=== PATIENT | female | born 1945 | race Caucasian/White ===

== ENCOUNTER → 2016-10-23 | Outpatient (CLI) | payer MEDICARE ==
--- NOTE | 2016-10-23 15:19 | CT ---
EXAMINATION TYPE: CT abdomen wo con DATE OF EXAM: 10/23/2016 3:09 PM COMPARISON: NONE HISTORY: Distented abdomen superior to navel area. Hx of hernia repairs. CT DLP: 341.[address] of the abdomen pelvis was performed. GI contrast was used. FINDINGS: LUNG BASES: No evidence for nodule. No evidence for infiltrate. There is a small fixed hiatal hernia. LIVER/GB: The gallbladder is unremarkable. 1.6 cm simple appearing cyst adjacent to the falciform lig ament of the liver. Additional ill-defined hypoattenuating area anterior segment right hepatic lobe m easuring 1.8 cm. Consider ultrasound correlation. PANCREAS: No pancreatic mass identified. No inflammatory process seen. SPLEEN: No evidence for splenomegaly. No intrasplenic lesions seen. ADRENALS: No adrenal nodules identified. No evidence for thickening. KIDNEYS: No evidence for renal mass. No nephrolithiasis. No hydronephrosis. BOWEL: No evidence of bowel obstruction. No inflammatory process. Lymph nodes: No evidence for adenopathy greater than 1 cm. Abdominal aorta: Atheromatous changes seen. No evidence for aneurysm. Other: Fat-containing ventral hernias of both extending towards the right of midline and towards the left of midline. Small fat-containing umbilical hernia also noted. Degenerative changes L4-5 and L5-S 1. Grade 1 anterolisthesis L4 on L5. IMPRESSION: 1.Fat-containing ventral hernias of both extending towards the right of midline and towards the left of midline. Small fat-containing umbilical hernia also noted. 2. Small sliding-type hiatal hernia. 3. 1.6 cm simple appearing cyst adjacent to the falciform ligament of the liver.Additional ill-define d hypoattenuating area anterior segment right hepatic lobe measuring 1.8 cm. Consider ultrasound kenzie elation.
--- NOTE | 2016-10-24 12:56 | MM ---
Reason for exam: screening (asymptomatic). Last mammogram was performed 1 year and 1 month ago. History: Patient is postmenopausal. Took estrogen for 6 years 7 months. Took progesterone for 6 years 7 months. Physical Findings: A clinical breast exam by your physician is recommended on an annual basis and results should be correlated with mammographic findings. MG 3D Screening Mammo W/Cad Bilateral CC and MLO view(s) were taken. Prior study comparison: October 04, 2015, bilateral MG 3d screening mammo w/cad. June 09, 2014, bilateral MG screening mammo w CAD. June 08, 2013, bilateral digital screening mammo w/CAD. There are scattered fibroglandular densities. There is no discrete abnormality. ASSESSMENT: Negative, BI-RAD 1 RECOMMENDATION: Routine screening mammogram of both breasts in 1 year.
== END | disposition home or self-care (01) ==
LOC: RADMAMWWP 13:59
PROVIDERS: ATTEND Family Medicine
DX: Z12.31 Encounter for screening mammogram for malignant neoplasm of breast (principal); K43.2 Incisional hernia without obstruction or gangrene; K43.9 Ventral hernia without obstruction or gangrene; K44.9 Diaphragmatic hernia without obstruction or gangrene; M24.20 Disorder of ligament, unspecified site; R93.2 Abnormal findings on diagnostic imaging of liver and biliary tract
CPT/HCPCS: 77063; 74150; G0202

== ENCOUNTER → 2018-01-16 | Outpatient (CLI) | payer MEDICARE ==
--- NOTE | 2018-01-23 11:33 | MM ---
Reason for exam: screening (asymptomatic). Last mammogram was performed 1 year and 3 months ago. History: Patient is postmenopausal. Took estrogen for 6 years 7 months. Took progesterone for 6 years 7 months. MG 3D Screening Mammo W/Cad Bilateral CC and MLO view(s) were taken. Prior study comparison: October 23, 2016, bilateral MG 3d screening mammo w/cad. October 04, 2015, bilateral MG 3d screening mammo w/cad. June 09, 2014, bilateral MG screening mammo w CAD. There are scattered fibroglandular densities. No suspicious abnormality. No significant changes when compared with prior studies. ASSESSMENT: Negative, BI-RAD 1 RECOMMENDATION: Routine screening mammogram of both breasts in 1 year.
== END | disposition home or self-care (01) ==
LOC: RADMAMWWP 09:27
PROVIDERS: ATTEND Family Medicine
DX: Z12.31 Encounter for screening mammogram for malignant neoplasm of breast (principal)
CPT/HCPCS: 77063; 77067

== ENCOUNTER → 2019-02-23 | Outpatient (CLI) | payer MEDICARE ==
--- NOTE | 2019-02-25 08:57 | MM ---
Reason for exam: screening (asymptomatic). Last mammogram was performed 1 year and 1 month ago. History: Patient is postmenopausal. Took estrogen for 6 years 7 months. Took progesterone for 6 years 7 months. Physical Findings: A clinical breast exam by your physician is recommended on an annual basis and results should be correlated with mammographic findings. MG Screening Mammo w CAD Bilateral CC and MLO view(s) were taken. Prior study comparison: January 16, 2018, bilateral MG 3d screening mammo w/cad. October 23, 2016, bilateral MG 3d screening mammo w/cad. There are scattered fibroglandular densities. No significant changes when compared with prior studies. ASSESSMENT: Negative, BI-RAD 1 RECOMMENDATION: Routine screening mammogram of both breasts in 1 year.
== END | disposition home or self-care (01) ==
LOC: RADMAMWWP 13:46
PROVIDERS: ATTEND Family Medicine
DX: Z12.31 Encounter for screening mammogram for malignant neoplasm of breast (principal)
CPT/HCPCS: 77067

== ENCOUNTER → 2020-10-17 | Outpatient (CLI) | payer MEDICARE ==
--- NOTE | 2020-10-18 10:16 | MM ---
Reason for exam: screening (asymptomatic). Last mammogram was performed 1 year and 8 months ago. History: Patient is postmenopausal. Took estrogen for 6 years 7 months. Took progesterone for 6 years 7 months. Physical Findings: A clinical breast exam by your physician is recommended on an annual basis and results should be correlated with mammographic findings. MG 3D Screening Mammo W/Cad Bilateral CC and MLO view(s) were taken. Prior study comparison: February 23, 2019, bilateral MG screening mammo w CAD. January 16, 2018, bilateral MG 3d screening mammo w/cad. There are scattered fibroglandular densities. No significant changes when compared with prior studies. ASSESSMENT: Benign, BI-RAD 2 RECOMMENDATION: Routine screening mammogram of both breasts in 1 year.
== END | disposition home or self-care (01) ==
LOC: RADMAMWWP 10:43
PROVIDERS: ATTEND Family Medicine
DX: Z12.31 Encounter for screening mammogram for malignant neoplasm of breast (principal); Z78.0 Asymptomatic menopausal state
CPT/HCPCS: 77063; 77067

== ENCOUNTER 2021-03-18 22:48 | Inpatient (IN) | payer MEDICARE ==
[2021-03-18] MEDS ORDERED: SODIUM CHLORIDE 0.9% 1,000 ML IV STA ×2 (23:14)
[2021-03-18] MEDS ORDERED: MORPHINE SULFATE 4 MG/ML SYRINGE IV STA (23:14)
[2021-03-18] MEDS ORDERED: ONDANSETRON 4 MG/2 ML VIAL IVP STA (23:14)
[2021-03-18] MEDS ORDERED: PROCHLORPERAZINE INJ 10 MG/2 ML VIAL IVP STA (23:14)
--- NOTE | 2021-03-18 23:14 | ED ---
Abdominal Pain HPI - General Chief Complaint: Chest Pain Stated Complaint: Chest Pain,Abd Pain Time Seen by Provider: 03/18/21 22:51 Source: patient, EMS, RN notes reviewed, old records reviewed Mode of arrival: EMS Limitations: no limitations - History of Present Illness Initial Comments: This is a 75-year-old female to the emergency room today. Patient presents today for evaluation regards to chest pain really mainly epigastric pain with severe abdominal pain going to her back nausea and vomiting. Also complains of chest pain with the abdominal pain. No current history of similar symptoms. No fevers. Actively vomiting so poor story currently. She does have history of high blood pressure no history of heart disease MD Complaint: abdominal pain, other (Chest pain back pain) -: hour(s) Location: periumbilical, epigastric, bilateral flank Radiation: bilateral flank Migration to: epigastric Severity: moderate Severity scale (1-10): 6 Quality: sharp Consistency: constant Improves With: nothing Worsens With: nothing Associated Symptoms: nausea, vomiting Treatments Prior to Arrival: other - Related Data Home Medications Medication Instructions Recorded Confirmed Aspirin 81 mg PO DAILY 02/03/14 10/21/14 Escitalopram [Lexapro] 10 mg PO Q48H 02/03/14 10/22/14 Fexofenadine HCl [Alyssa Allergy] 180 mg PO HS 02/03/14 10/22/14 Lansoprazole 30 mg PO DAILY 02/03/14 10/21/14 Meloxicam [Mobic] 7.5 mg PO BID 02/03/14 10/21/14 Metoprolol Succinate [Toprol XL] 200 mg PO BID 02/03/14 10/21/14 Telmisartan/Hydrochlorothiazid 1 tab PO DAILY 02/03/14 10/21/14 [Micardis Hct 80-12.5 mg Tablet] cloNIDine HCL [Catapres] 0.2 mg PO TID 02/03/14 10/21/14 Glucosam/Mayito-Msm1/C/Sebastian/Bosw 1 each PO DAILY 10/21/14 10/21/14 [Glucosamine-Chondroitin Tablet] [place]-3 Fatty Acids/Fish Oil [Fish 1 each PO DAILY 10/21/14 10/21/14 Oil 1,000 mg Softgel] amLODIPine BESYLATE [Norvasc] 5 mg PO DAILY 10/21/14 10/21/14 Previous Rx's Medication Instructions Recorded Docusate [Colace] 100 mg PO BID #30 capsule 10/22/14 Hydrocodone/Acetaminophen [[place] 1 each PO Q6HR PRN #50 tab 10/22/14 5-325] Allergies Allergy/AdvReac Type Severity Reaction Status Date / Time clarithromycin [From Biaxin] Allergy Severe Abdominal Verified 10/24/14 16:23 Pain celecoxib [From Celebrex] Allergy Unknown Rash/Hives Verified 10/24/14 16:23 ciprofloxacin [From Cipro] Allergy Unknown Rash/Hives Verified 10/24/14 16:23 ciprofloxacin HCl Allergy Unknown Rash/Hives Verified 10/24/14 16:23 [From Cipro] sulfamethoxazole Allergy Rash/Hives Verified 03/18/21 22:57 [From Bactrim] trimethoprim [From Bactrim] Allergy Rash/Hives Verified 03/18/21 22:57 Review of Systems ROS Statement: Those systems with pertinent positive or pertinent negative responses have been documented in the HPI. ROS Other: All systems not noted in ROS Statement are negative. Past Medical History Past Medical History: GERD/Reflux, Hypertension, Osteoarthritis (OA), Sleep Apnea/CPAP/BIPAP Additional Past Medical History / Comment(s): C-PAP MACHINE, STATES SHE HAS HEART FLUTTERS WHEN SHE TRIES TO DISCONTINUE LEXAPRO., ABD HERNIA., HEARING AIDS DARIANA. History of Any Multi-Drug Resistant Organisms: None Reported Past Surgical History: Appendectomy, Hernia Repair Additional Past Surgical History / Comment(s): Mucinous neoplasm of appendix, ventral hernia repair, excision of lipoma Past Anesthesia/Blood Transfusion Reactions: No Reported Reaction, Motion Sickness Past Psychological History: No Psychological Hx Reported Smoking Status: Never smoker Past Alcohol Use History: Occasional Past Drug Use History: None Reported - Past Family History Mother Family Medical History: No Reported History General Exam Limitations: no limitations General appearance: anxious Head exam: Present: atraumatic, normocephalic, normal inspection Eye exam: Present: normal appearance, PERRL, EOMI. Absent: scleral icterus, conjunctival injection, periorbital swelling ENT exam: Present: normal exam, mucous membranes moist Neck exam: Present: normal inspection. Absent: tenderness, meningismus, lymphadenopathy Respiratory exam: Present: normal lung sounds bilaterally. Absent: respiratory distress, wheezes, rales, rhonchi, stridor Cardiovascular Exam: Present: normal rhythm, bradycardia (Patient states this is her normal heart rate), normal heart sounds. Absent: systolic murmur, diastolic murmur, rubs, gallop, clicks GI/Abdominal exam: Present: soft, normal bowel sounds. Absent: distended, tenderness, guarding, rebound, rigid Extremities exam: Present: normal inspection, full ROM, normal capillary refill. Absent: tenderness, pedal edema, joint swelling, calf tenderness Back exam: Present: normal inspection Neurological exam: Present: alert, oriented X3, CN II-XII intact Psychiatric exam: Present: normal affect, normal mood Skin exam: Present: warm, dry, intact, normal color. Absent: rash Course Vital Signs 03/18/21 03/18/21 03/19/21 22:51 22:55 00:30 Temperature 97.7 F Pulse Rate 51 L 73 Pulse Rate [ 52 L Adolescent Psychiatrist ] Respiratory 20 18 Rate Blood Pressure 110/75 157/81 O2 Sat by Pulse 95 96 Oximetry 03/19/21 02:05 Temperature Pulse Rate 79 Pulse Rate [ Adolescent Psychiatrist ] Respiratory 18 Rate Blood Pressure 188/96 O2 Sat by Pulse 96 Oximetry - Reevaluation(s) Reevaluation #1: 03/19/21 00:29 Medical record is reviewed Reevaluation #2: 03/19/21 00:29 Patient does need recurrent dosing of nausea vomiting and pain medication Reevaluation #3: 03/19/21 02:27 Is persistent vomiting throughout ER stay although now mildly improved - Consultations Consultation #1: Spoke with Dr. Ramesh will see patient Medical Decision Making - Medical Decision Making 75 female to the ER today for evaluation of severe epigastric abdominal pain pain in her back. History of ventral hernia and appendicectomy surgeries. 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 and will be admitted for surgical consultation - Lab Data Result diagrams: 03/18/21 23:28 03/18/21 23:28 Lab Results 03/18/21 03/18/21 03/18/21 Range/Units 23:28 23:28 23:28 WBC 11.3 H (3.8-10.6) k/uL RBC 4.43 (3.80-5.40) m/uL Hgb 14.2 (11.4-16.0) gm/dL Hct 41.7 (34.0-46.0) % MCV 94.0 (80.0-100.0) fL MCH 32.0 (25.0-35.0) pg MCHC 34.1 (31.0-37.0) g/dL RDW 13.1 (11.5-15.5) % Plt Count 281 (150-450) k/uL MPV 7.7 Neutrophils % 78 % Lymphocytes % 14 % Monocytes % 4 % Eosinophils % 2 % Basophils % 1 % Neutrophils # 8.8 H (1.3-7.7) k/uL Lymphocytes # 1.6 (1.0-4.8) k/uL Monocytes # 0.5 (0-1.0) k/uL Eosinophils # 0.2 (0-0.7) k/uL Basophils # 0.1 (0-0.2) k/uL PT 10.6 (9.0-12.0) sec INR 1.0 (<1.2) APTT 19.7 L (22.0-30.0) sec D-Dimer 0.44 (<0.60) mg/L FEU Sodium 131 L (137-145) mmol/L Potassium 3.4 L (3.5-5.1) mmol/L Chloride 98 (98-107) mmol/L Carbon Dioxide 23 (22-30) mmol/L Anion Gap 10 mmol/L BUN 19 H (7-17) mg/dL Creatinine 0.90 (0.52-1.04) mg/dL Est GFR (CKD-EPI)AfAm 72 (>60 ml/min/1.73 sqM) Est GFR (CKD-EPI)NonAf 62 (>60 ml/min/1.73 sqM) Glucose 142 H (74-99) mg/dL Calcium 9.5 (8.4-10.2) mg/dL Magnesium 1.8 (1.6-2.3) mg/dL Total Bilirubin 0.4 (0.2-1.3) mg/dL AST 52 H (14-36) U/L ALT 40 H (4-34) U/L Alkaline Phosphatase 83 (38-126) U/L Troponin I (0.000-0.034) ng/mL NT-Pro-B Natriuret Pep pg/mL Total Protein 6.8 (6.3-8.2) g/dL Albumin 3.8 (3.5-5.0) g/dL Lipase 191 (23-300) U/L 03/18/21 03/18/21 Range/Units 23:28 23:28 WBC (3.8-10.6) k/uL RBC (3.80-5.40) m/uL Hgb (11.4-16.0) gm/dL Hct (34.0-46.0) % MCV (80.0-100.0) fL MCH (25.0-35.0) pg MCHC (31.0-37.0) g/dL RDW (11.5-15.5) % Plt Count (150-450) k/uL MPV Neutrophils % % Lymphocytes % % Monocytes % % Eosinophils % % Basophils % % Neutrophils # (1.3-7.7) k/uL Lymphocytes # (1.0-4.8) k/uL Monocytes # (0-1.0) k/uL Eosinophils # (0-0.7) k/uL Basophils # (0-0.2) k/uL PT (9.0-12.0) sec INR (<1.2) APTT (22.0-30.0) sec D-Dimer (<0.60) mg/L FEU Sodium (137-145) mmol/L Potassium (3.5-5.1) mmol/L Chloride (98-107) mmol/L Carbon Dioxide (22-30) mmol/L Anion Gap mmol/L BUN (7-17) mg/dL Creatinine (0.52-1.04) mg/dL Est GFR (CKD-EPI)AfAm (>60 ml/min/1.73 sqM) Est GFR (CKD-EPI)NonAf (>60 ml/min/1.73 sqM) Glucose (74-99) mg/dL Calcium (8.4-10.2) mg/dL Magnesium (1.6-2.3) mg/dL Total Bilirubin (0.2-1.3) mg/dL AST (14-36) U/L ALT (4-34) U/L Alkaline Phosphatase (38-126) U/L Troponin I <0.012 (0.000-0.034) ng/mL NT-Pro-B Natriuret Pep 341 pg/mL Total Protein (6.3-8.2) g/dL Albumin (3.5-5.0) g/dL Lipase (23-300) U/L - EKG Data -: EKG Interpreted by Me (EKG shows sinus bradycardia 58 VA 170 QRS 72 QTC 435) - Radiology Data Radiology results: report reviewed (CT abdomen and pelvis is positive for cecal volvulus), image reviewed Disposition Clinical Impression: Abdominal pain, Cecal volvulus Disposition: ADMITTED IP TO THIS [facility] Condition: Serious Is patient prescribed a controlled substance at d/c from ED?: No Referrals: Ray Gomes DO [Primary Care Provider] - 1-2 days
[2021-03-18 23:40] LABS: Basophils # (A) 0.1 k/uL (0-0.2); Basophils % (A) 1 %; Eosinophils # (A) 0.2 k/uL (0-0.7); Eosinophils % (A) 2 %; HCT 41.7 % (34.0-46.0); HGB 14.2 gm/dL (11.4-16.0); Lymphocytes # (A) 1.6 k/uL (1.0-4.8); Lymphocytes % (A) 14 %; MCHC 34.1 g/dL (31.0-37.0); Mean Platelet Volume 7.7; Monocytes # (A) 0.5 k/uL (0-1.0); Monocytes % (A) 4 %; Neutrophils # (A) 8.8 k/uL (1.3-7.7); Neutrophils % (A) 78 %; Platelet Count 281 k/uL (150-450); RBC 4.43 m/uL (3.80-5.40); RDW 13.1 % (11.5-15.5); WBC 11.3 k/uL (3.8-10.6)
[2021-03-18 23:50] LABS: Albumin 3.8 g/dL (3.5-5.0); Calcium 9.5 mg/dL (8.4-10.2); Magnesium 1.8 mg/dL (1.6-2.3); Potassium 3.4 mmol/L (3.5-5.1); Total Bilirubin 0.4 mg/dL (0.2-1.3); Total Protein 6.8 g/dL (6.3-8.2)
--- NOTE | 2021-03-19 00:21 | US ---
EXAMINATION TYPE: US gallbladder DATE OF EXAM: 03/19/2021 COMPARISON: CT, US CLINICAL HISTORY: pain. Pain. Hx appendectomy. EXAM MEASUREMENTS: Liver Length: 14.7 cm Right Kidney: 9.5 x 5.0 x 4.5 cm Limited due to overlying bowel gas. Patient in LLD position for most of the exam. Pancreas: Limited visibility of tail. Liver: Appears coarse in echotexture. Septated anechoic area seen in the left lobe: 1.8 x 2.0 x 1.6 cm. A second septated anechoic area seen in the left lobe: 1.5 x 1.5 x 1.5 cm. Fluid seen anterior to the liver: 3.3 x 4.6 x 1.3 cm. Gallbladder: Unable to clearly visualize toward end of exam. Possible portion of gallbladder seen in right liver images. Limited due to gas. Evidence for sonographic Alvarez's sign: No. CBD: Not visualized. Right Kidney: Hyperechoic focus seen: 0.5 x 0.5 x 0.4 cm. Fluid seen in the RUQ: 3.0 x 2.3 x 2.2 cm. IMPRESSION: There is some free fluid. Gallbladder not well visualized. No dilated ducts. Common bile duct not see n but no sign of dilation of the intrahepatic bile ducts. Limited exam.
[2021-03-19 00:22] LABS: Prothrombin Time 10.6 sec (9.0-12.0)
--- NOTE | 2021-03-19 00:23 | XR ---
EXAMINATION TYPE: XR chest 2V DATE OF EXAM: 03/19/2021 COMPARISON: NONE HISTORY: Chest pain TECHNIQUE: 2 views FINDINGS: Heart and mediastinum are within normal limits. Lungs are clear of infiltrate. There is mario e elevation of the right diaphragm. There is interposition of the hepatic flexure of the colon. There is no pleural effusion. Bony thorax is intact. IMPRESSION: No active cardiopulmonary disease. Normal heart.
[2021-03-19] MEDS ORDERED: HYDROmorphone 0.5 MG/0.5 ML SYRINGE IVP STA (00:26)
[2021-03-19 00:36] LABS: Partial Thromboplastin Time 19.7 sec (22.0-30.0)
--- NOTE | 2021-03-19 00:36 | XR ---
EXAMINATION TYPE: XR abdomen 1V DATE OF EXAM: 03/19/2021 COMPARISON: NONE HISTORY: Abdominal pain TECHNIQUE: 2 views FINDINGS: There are some distended gas-filled hepatic flexure of the colon. There is no sign of free air. I see no evidence of abdominal mass. There are no calcifications over the kidneys. IMPRESSION: There is evidence for some large bowel ileus. No free air.
--- NOTE | 2021-03-19 01:07 | CT ---
EXAMINATION TYPE: CT angio chest DATE OF EXAM: 03/19/2021 COMPARISON: None HISTORY: Chest Discomfort, R/O PE CT DLP: 254.10 mGycm Automated exposure control for dose reduction was used. CONTRAST: Performed with IV Contrast, patient injected with 100 mL of Isovue 370. There are 3-D post processed images. There is interposition of the hepatic flexure of the colon which is a normal variant. There is disten ded gas-filled hepatic flexure that measures 7.5 cm in diameter. There is evidence of abdominal ascit es. There is some mild increased linear density at the lung bases consistent with atelectasis. There is n o pleural effusion. Heart is borderline enlarged. There is no pericardial effusion. There is no mediastinal adenopathy. There are no hilar masses. There is normal contrast opacification of the pulmonary arteries. There are no filling defects. Thoracic aorta shows no evidence of aneurys m or dissection. The ascending aorta measures 3.3 cm. The thoracic spine is intact. There is no compression fracture. Sternum is intact. I see no evidence of a rib fracture. IMPRESSION: There is some patchy atelectasis at the lung bases. No evidence of pulmonary embolism. Distended righ t colon consistent with ileus.
--- NOTE | 2021-03-19 01:26 | CT ---
EXAMINATION TYPE: CT abdomen pelvis w con DATE OF EXAM: 03/19/2021 COMPARISON: 10/23/2016 HISTORY: Abd Pain, Discomfort CT DLP: 1046.60 mGycm Automated exposure control for dose reduction was used. CONTRAST: Performed with IV Contrast, patient injected with 100 mL of Isovue 370. Images obtained from the diaphragm to the floor the pelvis with IV contrast. There is some free fluid in the right paracolic gutter. There are multiple diverticula of the left co cora. There are small hepatic cysts.. The bile ducts are nondilated. Spleen is intact. Stomach is inta ct. There is small hiatal hernia. There is no evidence of pancreatic mass. There is no adrenal mass. Kidneys show satisfactory contrast opacification. There is no hydronephrosi s. Ureters are not dilated. There is no retroperitoneal adenopathy. Bladder distends smoothly. There is no inguinal hernia. There is small amount of free fluid in the pelvis. Uterus is anteverted. I see no pelvic mass. The small bowel is not dilated. There appears to be some rotational deformity of the mesentery of the right colon and related to a ce fernando volvulus. Dilated loop of bowel in the right upper quadrant appears to be dilated cecum. There is large bowel mesenteric edema in the right upper quadrant. Location of the ileocecal valve is difficu lt to identify. The lumbar vertebra have fairly normal alignment. Posterior elements are intact. There is no compress ion fracture. Bony pelvis is intact. The hip joints are intact. There is no hip dysplasia. There is a mild degenerative first-degree L4-5 spondylolisthesis. IMPRESSION: Dilated large bowel loop in the right upper quadrant appears to be a cecal volvulus with closed loop obstruction and surrounding edema and fluid. This exam was discussed with the patient's nurse in the ER at 1:30 AM.
[2021-03-19] MEDS ORDERED: AMPICILLIN-SULBACTAM 3 GM in SODIUM CHLORIDE 0.9% 100 ML IVPB STA (01:47)
[2021-03-19] MEDS ORDERED: NALOXONE 0.4 MG/ML 1 ML VIAL IV PRN ×2 (02:28→14:42)
[2021-03-19] MEDS ORDERED: HYDROmorphone 1 MG/ML 1 ML SYRINGE IVP PRN (02:28)
[2021-03-19] MEDS: ONDANSETRON 4 MG/2 ML VIAL IVP PRN ×2 (03:20→12:23)
[2021-03-19] MEDS: SODIUM CHLORIDE 0.9% 1,000 ML IV SCH ×3 (03:26→17:02)
[2021-03-19] MEDS ORDERED: LABETALOL 5 MG/ML VIAL MDV IVP STA (04:02)
[2021-03-19] MEDS ORDERED: AMPICILLIN-SULBACTAM 3 GM in SODIUM CHLORIDE 0.9% 100 ML IVPB SCH (09:00)
[2021-03-19] MEDS: PANTOPRAZOLE 40 MG/10 ML VIAL IV SCH (11:41)
--- NOTE | 2021-03-19 12:16 | P.GSHP ---
History of Present Illness H&P Date: 03/19/21 Chief Complaint: Cecal volvulus 75-year-old female came to the ER yesterday with complaints of abdominal pain that began just yesterday. Pain in the upper mid abdomen. Feels nauseated. Pain has waxed and waned overnight. Patient had gallbladder ultrasound, CTA, CT abdomen and pelvis. Patient's CAT scan hadn't been reviewed with the patient and her daughter at the bedside. Patient has findings consistent with cecal volvulus with some ischemic and pericolonic inflammatory changes. No evidence of perforation. Patient has been constipated recently. History of previous laparoscopic appendectomy and laparoscopic hernia repairs. White blood cell count 11.3. Lactic acid has gone from 3-3.9. - Review of Systems Comment: The patient denies any acute changes in vision or hearing, no dysphagia or odynophagia, no chest pain or shortness of breath, no dysuria or hematuria, no headache, no runny nose, no rectal bleeding or melena, no unexplained weight loss Past Medical History Past Medical History: GERD/Reflux, Hypertension, Osteoarthritis (OA), Sleep Apnea/CPAP/BIPAP Additional Past Medical History / Comment(s): C-PAP MACHINE, STATES SHE HAS HEART FLUTTERS WHEN SHE TRIES TO DISCONTINUE LEXAPRO., ABD HERNIA., HEARING AIDS DARIANA. History of Any Multi-Drug Resistant Organisms: None Reported Past Surgical History: Appendectomy, Hernia Repair Additional Past Surgical History / Comment(s): Mucinous neoplasm of appendix, ventral hernia repair, excision of lipoma Past Anesthesia/Blood Transfusion Reactions: No Reported Reaction, Motion Sickness Past Psychological History: No Psychological Hx Reported Smoking Status: Never smoker Past Alcohol Use History: Occasional Past Drug Use History: None Reported - Past Family History Mother Family Medical History: No Reported History Medications and Allergies Home Medications Medication Instructions Recorded Confirmed Type Aspirin 81 mg PO Q48H 02/03/14 03/19/21 History Escitalopram [Lexapro] 10 mg PO Q48H 02/03/14 03/19/21 History Fexofenadine HCl [Alyssa Allergy] 180 mg PO HS 02/03/14 03/19/21 History Lansoprazole 30 mg PO DAILY 02/03/14 03/19/21 History Meloxicam [Mobic] 7.5 mg PO BID 02/03/14 03/19/21 History Metoprolol Succinate [Toprol XL] 200 mg PO BID 02/03/14 03/19/21 History Telmisartan/Hydrochlorothiazid 1 tab PO DAILY 02/03/14 03/19/21 History [Micardis Hct 80-12.5 mg Tablet] cloNIDine HCL [Catapres] 0.2 mg PO TID 02/03/14 03/19/21 History Glucosam/Mayito-Msm1/C/Sebastian/Bosw 1 tab PO DAILY 10/21/14 03/19/21 History [Glucosamine-Chondroitin Tablet] Media-3 Fatty Acids/Fish Oil [Fish 1 cap PO DAILY 10/21/14 03/19/21 History Oil 1,000 mg Softgel] amLODIPine BESYLATE [Norvasc] 5 mg PO DAILY 10/21/14 03/19/21 History Calcium Carbonate/Vitamin D3 1 tab PO DAILY 03/19/21 03/19/21 History [Calcium 500 mg-Vit D3 5 mcg (200 Unit)] Meclizine HCl 25 mg PO DAILY PRN 03/19/21 03/19/21 History Vitamin E 400 unit PO DAILY 03/19/21 03/19/21 History Allergies Allergy/AdvReac Type Severity Reaction Status Date / Time clarithromycin [From Biaxin] Allergy Severe Abdominal Verified 03/19/21 09:17 Pain celecoxib [From Celebrex] Allergy Unknown Rash/Hives Verified 03/19/21 09:17 ciprofloxacin [From Cipro] Allergy Unknown Rash/Hives Verified 03/19/21 09:17 ciprofloxacin HCl Allergy Unknown Rash/Hives Verified 03/19/21 09:17 [From Cipro] sulfamethoxazole Allergy Rash/Hives Verified 03/19/21 09:17 [From Bactrim] trimethoprim [From Bactrim] Allergy Rash/Hives Verified 03/19/21 09:17 Surgical - Exam Vital Signs Temp Pulse Resp BP Pulse Ox 97.7 F 51 L 20 110/75 95 03/18/21 22:51 03/18/21 22:51 03/18/21 22:51 03/18/21 22:51 03/18/21 22:51 Physical exam: General: Well-developed, well-nourished, patient actually appears relatively comfortable HEENT: Normocephalic, sclerae nonicteric Abdomen: Distended, right upper quadrant and right mid abdominal tenderness, no rebound or guarding Extremities: No edema Neuro: Alert and oriented Results - Labs 03/18/21 23:28 03/18/21 23:28 Abnormal Lab Results - Last 24 Hours (Table) 03/18/21 03/18/21 03/18/21 Range/Units 23:28 23:28 23:28 WBC 11.3 H (3.8-10.6) k/uL Neutrophils # 8.8 H (1.3-7.7) k/uL APTT 19.7 L (22.0-30.0) sec Sodium 131 L (137-145) mmol/L Potassium 3.4 L (3.5-5.1) mmol/L BUN 19 H (7-17) mg/dL Glucose 142 H (74-99) mg/dL Plasma Lactic Acid Chava (0.7-2.0) mmol/L AST 52 H (14-36) U/L ALT 40 H (4-34) U/L 03/19/21 03/19/21 03/19/21 Range/Units 01:50 05:34 09:48 WBC (3.8-10.6) k/uL Neutrophils # (1.3-7.7) k/uL APTT (22.0-30.0) sec Sodium (137-145) mmol/L Potassium (3.5-5.1) mmol/L BUN (7-17) mg/dL Glucose (74-99) mg/dL Plasma Lactic Acid Chava 3.0 H* 2.8 H* 3.9 H* (0.7-2.0) mmol/L AST (14-36) U/L ALT (4-34) U/L Diabetes panel 03/18/21 Range/Units 23:28 Sodium 131 L (137-145) mmol/L Potassium 3.4 L (3.5-5.1) mmol/L Chloride 98 (98-107) mmol/L Carbon Dioxide 23 (22-30) mmol/L BUN 19 H (7-17) mg/dL Creatinine 0.90 (0.52-1.04) mg/dL Glucose 142 H (74-99) mg/dL Calcium 9.5 (8.4-10.2) mg/dL AST 52 H (14-36) U/L ALT 40 H (4-34) U/L Alkaline Phosphatase 83 (38-126) U/L Total Protein 6.8 (6.3-8.2) g/dL Albumin 3.8 (3.5-5.0) g/dL Calcium panel 03/18/21 Range/Units 23:28 Calcium 9.5 (8.4-10.2) mg/dL Albumin 3.8 (3.5-5.0) g/dL Pituitary panel 03/18/21 Range/Units 23:28 Sodium 131 L (137-145) mmol/L Potassium 3.4 L (3.5-5.1) mmol/L Chloride 98 (98-107) mmol/L Carbon Dioxide 23 (22-30) mmol/L BUN 19 H (7-17) mg/dL Creatinine 0.90 (0.52-1.04) mg/dL Glucose 142 H (74-99) mg/dL Calcium 9.5 (8.4-10.2) mg/dL Adrenal panel 03/18/21 Range/Units 23:28 Sodium 131 L (137-145) mmol/L Potassium 3.4 L (3.5-5.1) mmol/L Chloride 98 (98-107) mmol/L Carbon Dioxide 23 (22-30) mmol/L BUN 19 H (7-17) mg/dL Creatinine 0.90 (0.52-1.04) mg/dL Glucose 142 H (74-99) mg/dL Calcium 9.5 (8.4-10.2) mg/dL Total Bilirubin 0.4 (0.2-1.3) mg/dL AST 52 H (14-36) U/L ALT 40 H (4-34) U/L Alkaline Phosphatase 83 (38-126) U/L Total Protein 6.8 (6.3-8.2) g/dL Albumin 3.8 (3.5-5.0) g/dL Assessment and Plan (1) Cecal volvulus Narrative/Plan: 75-year-old female with cecal volvulus. CAT scan films and clinical scenario reviewed in detail with the patient and her daughter. Recommend exploratory laparotomy with right colectomy. Hopefully we'll avoid ostomy at this time. Risks of bleeding, infection, recurrent hernia, bladder bowel and ureteral injury, respiratory and cardiac complications, leak, abscess reviewed. She understands and wishes to proceed. Current Visit: Yes Status: Acute Code(s): K56.2 - VOLVULUS SNOMED Code(s): 870489339
[2021-03-19] MEDS ORDERED: IV FLUID CONTINUATION 1,000 ML IV ONE (13:28)
[2021-03-19] MEDS ORDERED: DEXAMETHASONE SOD PHOSPHATE 10 MG/ML 1 ML VIAL IV ONE (13:59)
[2021-03-19] MEDS ORDERED: SUCCINYLCHOLINE CHLORIDE 100 MG/5 ML SYR IV ONE (14:16)
[2021-03-19] MEDS ORDERED: LIDOCAINE 1% INJ 10MG/ML (20 ML MDV) ONE (14:16)
[2021-03-19] MEDS ORDERED: NEOSTIGMINE 1 MG/ML 10 ML VIAL ONE (14:16)
[2021-03-19] MEDS ORDERED: GLYCOPYRROLATE 0.2 MG/ML 2 ML VIAL ONE (14:16)
[2021-03-19] MEDS ORDERED: LABETALOL 5 MG/ML VIAL MDV ONE (14:16)
[2021-03-19] MEDS ORDERED: HEPARIN SODIUM,PORCINE 5,000 UNIT/ML 1 ML VIAL ONE (14:16)
[2021-03-19] MEDS ORDERED: hydrALAZINE HCL 20 MG/ML 1 ML VIAL ONE (14:16)
[2021-03-19] MEDS ORDERED: MIDAZOLAM 2 MG/2 ML VIAL ONE (14:16)
[2021-03-19] MEDS ORDERED: VECURONIUM 10 MG VIAL IV ONE (14:16)
[2021-03-19] MEDS ORDERED: fentaNYL (PF) 50 MCG/ML 2 ML AMP ONE (14:16)
[2021-03-19] MEDS ORDERED: PROPOFOL 10 MG/ML 20 ML VIAL IV ONE (14:16)
[2021-03-19] MEDS ORDERED: LACTATED RINGERS 1,000 ML IV ONE ×3 (14:18→15:41)
[2021-03-19] MEDS: metroNIDAZOLE-NS PMX 500 MG in SALINE 1 100ML.BAG IVPB SCH (14:43)
--- NOTE | 2021-03-19 14:45 | P.ANPRN ---
Procedure Note - Anesthesia - Epidural/Spinal Epidural Time Out Performed: Yes Date of Procedure: 03/19/21 Procedure Start Time: 13:43 Procedure Stop Time: 13:58 Location of Patient: Phase I Indication: Requested by Surgeon (Dr Ramesh) Sedation Type: Sedate with meaningful contact maintained Preparation: Sterile Dressing Position: Sitting Catheter: Indwelling Needle Guage: 18 Injectate: Test Dose Lidocaine1.5% w/1:200,000 epi (3cc) Blood Aspirated: No Pain Paresthesia on Injection Noted: No Events: Uneventful and Well Tolerated
[2021-03-19] MEDS ORDERED: HYDROmorphone 0.5 MG/0.5 ML SYRINGE IVP PRN (16:11)
--- NOTE | 2021-03-19 16:18 | P.OP ---
Date of Procedure: 03/19/21 Procedure(s) Performed: PREOPERATIVE DIAGNOSIS: Cecal volvulus POSTOPERATIVE DIAGNOSIS: Same, intra-abdominal adhesions PROCEDURE: Exploratory laparotomy with right colectomy and extensive lysis of adhesions SURGEON: Domitila EBL: 50 ML ANESTHESIA: General COMPLICATIONS: None OPERATIVE PROCEDURE: Placement placed in the operating table in the supine position. The patient was placed under general anesthesia. Abdomen was then prepped and draped sterilely. Midline incision made using the scalpel. Dissection through the subcutaneous tissues and fascia took place using electrocautery. Once we were through the fascia the patient had evidence of a intraperitoneal mesh. This was lysed sharply. The patient had adhesions between the mesh and the omentum as well as a few of the small bowel loops. These were lysed using both blunt dissection and sharp dissection. No serosal tears were seen. It should be noted that the mesh present was quite large extending all the way across both upper quadrants and along the full length of our incision vertically. The patient had a large volume of serosanguineous fluid within the abdomen that was evacuated. There was a slight odor as we approached the right upper quadrant. Once I was able to free up the adhesions in the right upper quadrant the patient's large volvulized segment of colon was easily seen. This was brought medially. This was carefully untwisted while controlling the mesentery. The bowel was ischemic appearing but no perforation was seen. The bowel was further mobilized by incising the peritoneal lining laterally. The small bowel and transverse colon were divided using linear 75 staplers. Mesentery of the transverse colon and ascending colon cecum and terminal ileum was then divided using a combination of 0 silk ties and the LigaSure device. Specimen was passed off at that point. The area was irrigated. No bleeding was seen. The antimesenteric portion of the staple line of both the ileum and transverse colon was excised using electrocautery. The linear 75 stapler was fired along the antimesenteric border creating a [id number] anastomosis antiperistaltic. The defect was then closed using a TX 60 device. The TX 60 stapler line was imbricated using interrupted 3-0 GI silk sutures. A 3-0 GI silk crotch stitch was also placed. Again irrigation took place with no evidence of bleeding. The patient's mesh was reapproximated using a running 0 Prolene suture. The fascia was then able to be reapproximated using 2 separate double-stranded #1 PDS sutures. The subcutaneous tissues were closed using 3-0 Vicryl sutures. The skin was closed using ro. Sterile dressings were applied. At the end of this procedure the sponge needle and ensure counts were correct. DISPOSITION: Stable to recovery room
[2021-03-19] MEDS: HEPARIN SODIUM,PORCINE/PF 5,000 UNIT/0.5 ML SYRINGE SQ SCH (17:02)
[2021-03-19] MEDS: ACETAMINOPHEN IV (For NPO) 1,000 MG in EMPTY BAG 1 BAG IVPB SCH ×2 (17:18→23:15)
[2021-03-19] MEDS ORDERED: hydrALAZINE HCL 20 MG/ML 1 ML VIAL IVP PRN (18:48)
[2021-03-19] MEDS: AMPICILLIN-SULBACTAM 3 GM in SODIUM CHLORIDE 0.9% 100 ML IVPB SCH (20:59)
--- NOTE | 2021-03-19 21:09 | CONS ---
CONSULTATION DATE OF SERVICE: 03/19/2021 REASON FOR CONSULTATION: Advice regarding hypertension and other medical issues requested by Dr. Ramesh. HISTORY OF THE PRESENT ILLNESS: This 75 -year-old woman with past medical history of GERD, hypertension, DJD, sleep apnea, being followed by Dr. Ray Gomes in the outpatient setting, underwent exploratory laparotomy with right colectomy and extensive lysis of adhesions for cecal volvulus by Dr. Ramesh. The patient tolerated the procedure. Patient is sedated at this time. There is n.p.o. until tomorrow morning. There is no history of fever, rigors, chills. No history of headache, loss of consciousness or seizures. PAST MEDICAL HISTORY: Hypertension, GERD, history of DJD. MEDICATIONS: Home medications are vitamin E, meclizine, clonidine, omega-3 fatty acids, glucosamine and Lexapro, aspirin. ALLERGIES: BIAXIN, CELEBREX, CIPRO, BACTRIM. FAMILY HISTORY: No history of heart disease or strokes in the family. SOCIAL HISTORY: No history of smoking. Occasional alcohol. REVIEW OF SYSTEMS: ENT: Diminished hearing. Diminished vision. CARDIOVASCULAR system: No angina or palpitations. RESPIRATORY: No cough. GI as mentioned earlier. : As mentioned earlier. NERVOUS SYSTEM: No numbness, weakness. ALLERGY/IMMUNOLOGY: No asthma or hayfever. MUSCULOSKELETAL: As mentioned earlier. HEMATOLOGY/ONCOLOGY: No history of anemia. ENDOCRINE: No history of diabetes or hypothyroidism. CONSTITUTIONAL: As mentioned earlier. DERMATOLOGY: Negative. RHEUMATOLOGY: Negative. PSYCHIATRY as mentioned earlier. PHYSICAL EXAM: Alert and oriented x3. Pulse 93, blood pressure 150/70, respirations 16, temperature 98.7, pulse ox 94% on 3 L. HEENT: Conjunctivae normal. NECK: No JVD. CARDIOVASCULAR: S1, S2, muffled. No S3, no S4, RESPIRATORY: Breath sounds diminished in the bases. Scattered rhonchi and crackles. ABDOMEN: Soft. Status post surgery. LEGS are no edema. No swelling. NERVOUS SYSTEM: No focal deficits. SKIN: No ulcer, rash or bleeding. JOINTS: No active deforming arthropathy. LABS: WBC 11.3 and sodium 139, potassium 3.4. Lactic acid 3.4. ASSESSMENT: 1. Acute cecal volvulus, status post exploratory laparotomy, right colectomy and extensive lysis of adhesions. 2. Hyponatremia. 3. Hypokalemia. 4. Increased WBC. 5. Elevated lactic acid. 6. Increased AST/ALT. 7. History of gastroesophageal reflux disease. 8. History of degenerative joint disease. 9. Hypertension. 10.Sleep apnea. 11.CPAP. 12.History of appendectomy. 13.FULL CODE. RECOMMENDATIONS AND DISCUSSION: This 75 -year-old woman presented with multiple medical issues, at this time, I recommend to continue current medications, continue the current treatment. Resume the home medications when the patient is p.o. Otherwise p.r.n. may be used for blood pressure elevations. We will follow the patient closely. The patient may be asked to follow up with Dr. Gomes closely after discharge. DVT prophylaxis. GI prophylaxis. Thank you Dr. Ramesh for letting us participate in the care of this patient. ITZ / ANGY: [id number] / MTDD
[2021-03-19] MEDS: METOPROLOL SUCCINATE (ER) 100 MG TAB.ER.24H PO SCH (23:11)
[2021-03-20] MEDS: ESCITALOPRAM 10 MG TAB PO SCH (00:10)
[2021-03-20] MEDS: metroNIDAZOLE-NS PMX 500 MG in SALINE 1 100ML.BAG IVPB SCH ×4 (00:17→23:25)
[2021-03-20] MEDS: HEPARIN SODIUM,PORCINE/PF 5,000 UNIT/0.5 ML SYRINGE SQ SCH ×4 (00:26→23:26)
[2021-03-20] MEDS: SODIUM CHLORIDE 0.9% 1,000 ML IV SCH ×4 (02:34→21:51)
[2021-03-20 03:07] LABS: ALT 45 U/L (4-34); AST 42 U/L (14-36); African American GFR (CKD) >90 (>60 ml/min/1.73 sqM); Albumin 2.8 g/dL (3.5-5.0); Albumin/Globulin Ratio 1.1; Alkaline Phosphatase 59 U/L (38-126); Anion Gap 7 mmol/L; Blood Urea Nitrogen 11 mg/dL (7-17); Calcium 8.8 mg/dL (8.4-10.2); Carbon Dioxide 21 mmol/L (22-30); Chloride 107 mmol/L (98-107); Globulin 2.5 g/dL; Glucose 139 mg/dL (74-99); Non-African American GFR(CKD) 83 (>60 ml/min/1.73 sqM); Potassium 3.6 mmol/L (3.5-5.1); Sodium 135 mmol/L (137-145); Total Bilirubin 0.5 mg/dL (0.2-1.3); Total Protein 5.3 g/dL (6.3-8.2)
[2021-03-20 03:58] LABS: Basophils % (A) 0 %; Eosinophils % (A) 0 %; HCT 41.7 % (34.0-46.0); HGB 13.9 gm/dL (11.4-16.0); Lymphocytes # (A) 0.9 k/uL (1.0-4.8); Lymphocytes % (A) 8 %; MCH 32.3 pg (25.0-35.0); MCHC 33.4 g/dL (31.0-37.0); MCV 96.7 fL (80.0-100.0); Mean Platelet Volume 8.1; Monocytes # (A) 0.6 k/uL (0-1.0); Monocytes % (A) 5 %; Neutrophils # (A) 9.3 k/uL (1.3-7.7); Neutrophils % (A) 85 %; Platelet Count 248 k/uL (150-450); RBC 4.32 m/uL (3.80-5.40); RDW 13.8 % (11.5-15.5); WBC 10.9 k/uL (3.8-10.6)
[2021-03-20] MEDS: AMPICILLIN-SULBACTAM 3 GM in SODIUM CHLORIDE 0.9% 100 ML IVPB SCH ×3 (04:19→21:21)
[2021-03-20] MEDS: ACETAMINOPHEN IV (For NPO) 1,000 MG in EMPTY BAG 1 BAG IVPB SCH ×2 (05:34→13:12)
[2021-03-20] MEDS: cloNIDine HCL 0.2 MG TAB PO SCH ×3 (07:48→21:21)
[2021-03-20] MEDS: METOPROLOL SUCCINATE (ER) 100 MG TAB.ER.24H PO SCH ×2 (07:48→21:21)
[2021-03-20] MEDS: hydroCHLOROthiazide 12.5 MG CAP PO SCH (07:48)
[2021-03-20] MEDS: LOSARTAN 50 MG TAB PO SCH (07:48)
--- NOTE | 2021-03-20 07:48 | P.PN ---
Progress Note - Text Progress Note Date: 03/20/21 (631) Anesthesia Postop day 1 Status post exploratory laparotomy right colectomy with epidural Day 2 Patient seen and examined. Doing well without complaint. VAS 4 out of 10. No nausea vomiting or pruritus. Ropivacaine 0.1% with fentanyl 2.5 mcg/mL at 6 mL an hour. Objective: Vital signs reviewed Lungs: Good chest excursion Abdomen: Appears nondistended Other: Epidural Site Intact without induration. Dressing intact Neuro: No apparent motor block. Sensory within normal limits. Assessment: Status post expiratory laparotomy with right colectomy postop day 1 Plan: Continue current care with your medical management. Anticipate reevaluat ion tomorrow.
[2021-03-20] MEDS: PANTOPRAZOLE 40 MG/10 ML VIAL IV SCH (07:49)
[2021-03-20] MEDS: ROPIVACAINE 250 MG, fentaNYL (PF) 625 MCG in SODIUM CHLORIDE 0.9% 188 ML EPIDURAL PRN (08:04)
[2021-03-20] MEDS ORDERED: amLODIPine 5 MG TAB PO SCH (09:00)
[2021-03-20] MEDS ORDERED: MECLIZINE 25 MG TAB PO PRN (09:46)
--- NOTE | 2021-03-20 11:18 | P.PN ---
<Jacqueline Esparza - Last Filed: 03/20/21 11:13> Subjective Progress Note Date: 03/20/21 CHIEF COMPLAINT: Cecal volvulus HISTORY OF PRESENT ILLNESS: Patient is status post exploratory laparotomy with right colectomy and extensive lysis of adhesions. Postop day #1. She has epidural for pain control. She denies any nausea or vomiting. Denies any flatus or bowel movement. Afebrile. Patient has had elevated BP. Medicine service did add IV hydralazine as needed. WBC has decreased from 11.3-10.9. Lactic acid is down to 2.0 Chronic liquid diet. PHYSICAL EXAM: VITAL SIGNS: Reviewed. GENERAL: Well-developed in no acute distress. HEENT: No sclera icterus. Extraocular movements grossly intact. Moist buccal mucosa. Head is atraumatic, normocephalic. ABDOMEN: Soft. Mildly distended dressing clean dry and intact. has abdominal binder in place NEUROLOGIC: Alert and oriented. Cranial nerves II through XII grossly intact. ASSESSMENT: 1. Cecal volvulus and intra-abdominal adhesions status post exploratory laparotomy with right colectomy and extensive lysis of adhesions PLAN: -Continue epidural for pain control -Encouraged patient to increase activity -Encouraged patient to use incentive spirometer -Continue clear liquids -GI prophylaxis Protonix and DVT prophylaxis subcu heparin Physician Machining And Assembly Supervisor note has been reviewed by physician. Signing provider agrees with the documented findings, assessment, and plan of care. Objective - Vital Signs Vital signs: Vital Signs Temp 98.2 F 03/20/21 08:35 Pulse 90 03/20/21 08:35 Resp 16 03/20/21 08:35 BP 164/71 03/20/21 08:35 Pulse Ox 95 03/20/21 08:35 Intake & Output 03/19/21 03/20/21 03/20/21 18:59 06:59 18:59 Intake Total 1150 Output Total 170 1200 Balance 980 -1200 Intake: IV 1150 Output: Urine 120 1200 Estimated Blood Loss 50 Other: Voiding Method Indwelling Catheter Indwelling Catheter # Bowel Movements 0 - Labs CBC & Chem 7: 03/20/21 02:44 03/20/21 02:44 Labs: Abnormal Lab Results - Last 24 Hours (Table) 03/19/21 03/19/21 03/20/21 Range/Units 17:50 21:12 00:06 WBC (3.8-10.6) k/uL Neutrophils # (1.3-7.7) k/uL Lymphocytes # (1.0-4.8) k/uL Sodium (137-145) mmol/L Carbon Dioxide (22-30) mmol/L Glucose (74-99) mg/dL Plasma Lactic Acid Chava 3.4 H* 3.6 H* 2.2 H* (0.7-2.0) mmol/L AST (14-36) U/L ALT (4-34) U/L Total Protein (6.3-8.2) g/dL Albumin (3.5-5.0) g/dL 03/20/21 03/20/21 Range/Units 02:44 02:44 WBC 10.9 H (3.8-10.6) k/uL Neutrophils # 9.3 H (1.3-7.7) k/uL Lymphocytes # 0.9 L (1.0-4.8) k/uL Sodium 135 L (137-145) mmol/L Carbon Dioxide 21 L (22-30) mmol/L Glucose 139 H (74-99) mg/dL Plasma Lactic Acid Chava (0.7-2.0) mmol/L AST 42 H (14-36) U/L ALT 45 H (4-34) U/L Total Protein 5.3 L (6.3-8.2) g/dL Albumin 2.8 L (3.5-5.0) g/dL <Kishore Ramesh - Last Filed: 03/20/21 15:17> Subjective Patient doing well today. Pain is fairly well controlled. No bowel function. No nausea or vomiting. Dressing clean and dry. Continue clear liquids. Increase activity. Objective - Vital Signs Vital signs: Vital Signs Temp 98.2 F 03/20/21 08:35 Pulse 90 03/20/21 08:35 Resp 16 03/20/21 08:35 BP 164/71 03/20/21 08:35 Pulse Ox 95 03/20/21 08:35 Intake & Output 03/19/21 03/20/21 03/20/21 18:59 06:59 18:59 Intake Total 1150 Output Total 170 1200 Balance 980 -1200 Intake: IV 1150 Output: Urine 120 1200 Estimated Blood Loss 50 Other: Voiding Method Indwelling Catheter Indwelling Catheter # Bowel Movements 0 - Labs CBC & Chem 7: 03/20/21 02:44 03/20/21 02:44 Labs: Abnormal Lab Results - Last 24 Hours (Table) 03/19/21 03/19/21 03/20/21 Range/Units 17:50 21:12 00:06 WBC (3.8-10.6) k/uL Neutrophils # (1.3-7.7) k/uL Lymphocytes # (1.0-4.8) k/uL Sodium (137-145) mmol/L Carbon Dioxide (22-30) mmol/L Glucose (74-99) mg/dL Plasma Lactic Acid Chava 3.4 H* 3.6 H* 2.2 H* (0.7-2.0) mmol/L AST (14-36) U/L ALT (4-34) U/L Total Protein (6.3-8.2) g/dL Albumin (3.5-5.0) g/dL 03/20/21 03/20/21 Range/Units 02:44 02:44 WBC 10.9 H (3.8-10.6) k/uL Neutrophils # 9.3 H (1.3-7.7) k/uL Lymphocytes # 0.9 L (1.0-4.8) k/uL Sodium 135 L (137-145) mmol/L Carbon Dioxide 21 L (22-30) mmol/L Glucose 139 H (74-99) mg/dL Plasma Lactic Acid Chava (0.7-2.0) mmol/L AST 42 H (14-36) U/L ALT 45 H (4-34) U/L Total Protein 5.3 L (6.3-8.2) g/dL Albumin 2.8 L (3.5-5.0) g/dL Assessment and Plan (1) Cecal volvulus Current Visit: Yes Status: Acute Code(s): K56.2 - VOLVULUS SNOMED Code(s): 686961139
--- NOTE | 2021-03-20 18:50 | PN ---
PROGRESS NOTE DATE OF SERVICE: 03/20/2021 This 75-year-old woman who was admitted after surgery is improving significantly. Patient was take multiple blood pressure medications. The blood pressure is currently 181/77. No chest pain. No palpitations. No fever. PHYSICAL EXAMINATION: Alert and oriented x3. Pulse 86, blood pressure 181/77, respiration 18, temperature 97.7, pulse ox 94% on 3 L. HEENT: Conjunctivae normal. NECK: No jugular venous distention. CARDIOVASCULAR: S1, S2 muffled. RESPIRATION: Breath sounds diminished at the bases. A few scattered rhonchi and crackles. ABDOMEN: Soft, nontender. NERVOUS SYSTEM: No focal deficit. LABS: WBC 10.9, sodium 135. Lactic acid is noted. ASSESSMENT: 1. Acute cecal volvulus, status post exploratory laparotomy, right colectomy and extensive lysis of adhesions. 2. Hypertension. 3. Hypokalemia. 4. Increased white count. 5. Elevated lactic acid. 6. Increased AST, ALT. 7. History of gastroesophageal reflux disease. 8. History of degenerative joint disease. 9. Hypertension. 10.History of sleep apnea. 11.History of CPAP. 12.History of appendectomy. 13.FULL CODE. RECOMMENDATIONS AND DISCUSSION: I recommend to continue current medications, continue with symptomatic treatment. Resume the home medications. I would continue recommend continuing with p.r.n. hydralazine. Otherwise, the patient is on multiple medications, including losartan. Will cut down on the IV fluids. Will add Norvasc to the current regimen. Increase the dose of Norvasc to 10 mg. Guarded prognosis. Further recommendations to follow. MMODL / IJN: [id number] /
[2021-03-21] MEDS: AMPICILLIN-SULBACTAM 3 GM in SODIUM CHLORIDE 0.9% 100 ML IVPB SCH ×3 (04:18→19:35)
[2021-03-21] MEDS: ROPIVACAINE 250 MG, fentaNYL (PF) 625 MCG in SODIUM CHLORIDE 0.9% 188 ML EPIDURAL PRN (04:20)
[2021-03-21 07:36] LABS: Basophils % (A) 0 %; Eosinophils # (A) 0.1 k/uL (0-0.7); Eosinophils % (A) 1 %; HCT 31.9 % (34.0-46.0); Lymphocytes # (A) 1.2 k/uL (1.0-4.8); Lymphocytes % (A) 13 %; MCH 32.2 pg (25.0-35.0); MCHC 33.3 g/dL (31.0-37.0); MCV 96.8 fL (80.0-100.0); Mean Platelet Volume 7.7; Monocytes # (A) 0.6 k/uL (0-1.0); Monocytes % (A) 7 %; Neutrophils % (A) 77 %; Platelet Count 211 k/uL (150-450); RBC 3.29 m/uL (3.80-5.40); RDW 13.7 % (11.5-15.5); WBC 9.1 k/uL (3.8-10.6)
[2021-03-21 07:49] LABS: ALT 31 U/L (4-34); AST 30 U/L (14-36); African American GFR (CKD) 82 (>60 ml/min/1.73 sqM); Albumin 2.2 g/dL (3.5-5.0); Alkaline Phosphatase 48 U/L (38-126); Anion Gap -1 mmol/L; Blood Urea Nitrogen 14 mg/dL (7-17); Calcium 8.6 mg/dL (8.4-10.2); Carbon Dioxide 32 mmol/L (22-30); Chloride 104 mmol/L (98-107); Globulin 2.2 g/dL; Glucose 89 mg/dL (74-99); Non-African American GFR(CKD) 71 (>60 ml/min/1.73 sqM); Potassium 3.5 mmol/L (3.5-5.1); Sodium 135 mmol/L (137-145); Total Bilirubin 0.6 mg/dL (0.2-1.3); Total Protein 4.4 g/dL (6.3-8.2)
[2021-03-21 08:03] LABS: HGB 10.6 gm/dL (11.4-16.0)
[2021-03-21] MEDS: HEPARIN SODIUM,PORCINE/PF 5,000 UNIT/0.5 ML SYRINGE SQ SCH ×3 (08:09→23:30)
[2021-03-21] MEDS: metroNIDAZOLE-NS PMX 500 MG in SALINE 1 100ML.BAG IVPB SCH ×3 (08:09→23:30)
[2021-03-21] MEDS: hydroCHLOROthiazide 12.5 MG CAP PO SCH (08:10)
[2021-03-21] MEDS: cloNIDine HCL 0.2 MG TAB PO SCH ×3 (08:10→21:02)
[2021-03-21] MEDS: METOPROLOL SUCCINATE (ER) 100 MG TAB.ER.24H PO SCH ×2 (08:10→21:02)
[2021-03-21] MEDS: LOSARTAN 50 MG TAB PO SCH (08:10)
[2021-03-21] MEDS: PANTOPRAZOLE 40 MG/10 ML VIAL IV SCH (08:11)
[2021-03-21] MEDS ORDERED: amLODIPine 10 MG TAB PO SCH (09:00)
--- NOTE | 2021-03-21 11:53 | P.PN ---
<Jacqueline Esparza - Last Filed: 03/21/21 11:47> Subjective Progress Note Date: 03/21/21 CHIEF COMPLAINT: Cecal volvulus HISTORY OF PRESENT ILLNESS: Patient is status post exploratory laparotomy with right colectomy and extensive lysis of adhesions. Postop day #2. She has epidural for pain control. She denies any nausea or vomiting. Patient reports having a bowel movement last night. She denies any nausea or vomiting. Afebrile. Blood pressure has improved. WBC normalized at 9.1 hemoglobin 10.6 sodium 135 potassium 3.5 creatinine 0.81 PHYSICAL EXAM: VITAL SIGNS: Reviewed. GENERAL: Well-developed in no acute distress. HEENT: No sclera icterus. Extraocular movements grossly intact. Moist buccal mucosa. Head is atraumatic, normocephalic. ABDOMEN: Soft. Mildly distended. dressing minimal blood saturation at Center of dressing. has abdominal binder in place NEUROLOGIC: Alert and oriented. Cranial nerves II through XII grossly intact. ASSESSMENT: 1. Cecal volvulus and intra-abdominal adhesions status post exploratory laparotomy with right colectomy and extensive lysis of adhesions PLAN: -Continue epidural for pain control -Encouraged patient to increase activity -Encouraged patient to use incentive spirometer -Continue clear liquids -Consult PT OT -GI prophylaxis Protonix and DVT prophylaxis subcu heparin Physician Respiratory Manager note has been reviewed by physician. Signing provider agrees with the documented findings, assessment, and plan of care. Objective - Vital Signs Vital signs: Vital Signs Temp 98.0 F 03/21/21 07:00 Pulse 71 03/21/21 07:00 Resp 17 03/21/21 07:00 BP 128/68 03/21/21 07:00 Pulse Ox 96 03/21/21 07:00 Intake & Output 03/20/21 03/21/21 03/21/21 18:59 06:59 18:59 Intake Total 121.6 Output Total 1825 1000 Balance -1825 -878.4 Intake: Intake, IV Titration 121.6 Amount Ropivacaine 250 mg 121.6 fentaNYL (PF) 625 mcg In Sodium Chloride 0.9% 188 ml @ Per Protocol EPIDURAL .Q0M PRN Rx#: [id number] Output: Urine 1825 1000 Other: Voiding Method Indwelling Catheter Indwelling Catheter Indwelling Catheter # Bowel Movements 1 - Labs CBC & Chem 7: 03/21/21 06:55 03/21/21 06:55 Labs: Abnormal Lab Results - Last 24 Hours (Table) 03/21/21 03/21/21 Range/Units 06:55 06:55 RBC 3.29 L (3.80-5.40) m/uL Hgb 10.6 L D (11.4-16.0) gm/dL Hct 31.9 L (34.0-46.0) % Sodium 135 L (137-145) mmol/L Carbon Dioxide 32 H (22-30) mmol/L Total Protein 4.4 L (6.3-8.2) g/dL Albumin 2.2 L (3.5-5.0) g/dL <Kishore Ramesh - Last Filed: 03/21/21 14:30> Subjective As above. Patient doing better today. Pain is well-controlled. Will increase diet to full liquids. Fluids decreased to 50/h. Remove Sifuentes catheter and epidural tomorrow Objective - Vital Signs Vital signs: Vital Signs Temp 97.7 F 03/21/21 14:12 Pulse 69 03/21/21 14:12 Resp 18 03/21/21 14:12 BP 117/71 03/21/21 14:12 Pulse Ox 96 03/21/21 14:12 Intake & Output 03/20/21 03/21/21 03/21/21 18:59 06:59 18:59 Intake Total 121.6 300 Output Total 1825 1000 Balance -1825 -878.4 300 Intake: Intake, IV Titration 121.6 300 Amount Ampicillin-Sulbactam 3 gm 200 In Sodium Chloride 0.9% 100 ml @ 200 mls/hr IVPB Q8H [facility] Rx#:[id number] Ropivacaine 250 mg 121.6 fentaNYL (PF) 625 mcg In Sodium Chloride 0.9% 188 ml @ Per Protocol EPIDURAL .Q0M PRN Rx#: [id number] metroNIDAZOLE-NS PMX 500 100 mg In Saline 1 100ml.bag @ 100 mls/hr IVPB Q8HR [facility] Rx#:[id number] Output: Urine 1825 1000 Other: Voiding Method Indwelling Catheter Indwelling Catheter Indwelling Catheter # Bowel Movements 1 - Labs CBC & Chem 7: 03/21/21 06:55 03/21/21 06:55 Labs: Abnormal Lab Results - Last 24 Hours (Table) 03/21/21 03/21/21 Range/Units 06:55 06:55 RBC 3.29 L (3.80-5.40) m/uL Hgb 10.6 L D (11.4-16.0) gm/dL Hct 31.9 L (34.0-46.0) % Sodium 135 L (137-145) mmol/L Carbon Dioxide 32 H (22-30) mmol/L Total Protein 4.4 L (6.3-8.2) g/dL Albumin 2.2 L (3.5-5.0) g/dL Assessment and Plan (1) Cecal volvulus Current Visit: Yes Status: Acute Code(s): K56.2 - VOLVULUS SNOMED Code(s): 357555666
--- NOTE | 2021-03-21 18:07 | PN ---
PROGRESS NOTE DATE OF SERVICE: 03/21/2021 This 75-year-old woman who was admitted with acute cecal volvulus and surgery is being closely monitored. Patient has significant history of hypertension also. Blood pressure is well controlled at this time. No chest pain. No palpitations. No fever. PHYSICAL EXAMINATION: Alert and oriented x3. Pulse is 69, blood pressure 117/70, respiration 18, temperature 97.7. HEENT: Conjunctivae normal. NECK: No jugular venous distention. CARDIOVASCULAR: S1, S2 muffled. RESPIRATION: Breath sounds diminished at the bases. ABDOMEN: Soft. Status post surgery. LEGS: No edema. No swelling. NERVOUS SYSTEM: Higher functions as mentioned earlier. Moves all 4 limbs. No focal deficit. LABS: Labs at this time show WBC 9.1, hemoglobin 10.6, sodium 135. ASSESSMENT: 1. Acute cecal volvulus, status post exploratory laparotomy, right colectomy and extensive lysis of adhesions. 2. Hypertension. 3. Hypokalemia, improved. 4. Increased white count, possibly reactive. 5. Mild hyponatremia. 6. Elevated lactic acid, improved. 7. Increased AST and ALT. 8. History of gastroesophageal reflux disease. 9. History of degenerative joint disease. 10.Hypertension. 11.History of sleep apnea. 12.History of CPAP. 13.History of appendectomy. 14.FULL CODE. RECOMMENDATIONS AND DISCUSSION: I recommend to continue current medications, continue with symptomatic treatment. Monitor blood pressure closely. Decrease Norvasc to 5 mg daily and DVT prophylaxis. Closely follow with Surgery. Further recommendations to follow. MMODL / IJN: [id number] /
[2021-03-21] MEDS: ESCITALOPRAM 10 MG TAB PO SCH (21:01)
[2021-03-22] MEDS: AMPICILLIN-SULBACTAM 3 GM in SODIUM CHLORIDE 0.9% 100 ML IVPB SCH ×3 (03:39→20:21)
[2021-03-22] MEDS: HEPARIN SODIUM,PORCINE/PF 5,000 UNIT/0.5 ML SYRINGE SQ SCH ×3 (07:27→23:11)
[2021-03-22] MEDS: metroNIDAZOLE-NS PMX 500 MG in SALINE 1 100ML.BAG IVPB SCH ×3 (07:56→23:12)
[2021-03-22] MEDS: PANTOPRAZOLE 40 MG/10 ML VIAL IV SCH (08:05)
--- NOTE | 2021-03-22 08:08 | P.PN ---
Progress Note - Text Progress Note Date: 03/22/21 (021) Anesthesia Postop day 3 Status post right colectomy with epidural day 4 Patient seen and examined. Doing well [without complaint]. VAS 0 out of 10. [No nausea vomiting or pruritus]. Ropivacaine [0.1%] with fentanyl 2.5 mcg/mL at [6 mL] an hour. Objective: Vital signs reviewed Lungs: Good chest excursion Abdomen: Appears nondistended Other: [Epidural Site Intact without induration. Dressing intact] Neuro: [No apparent motor block]. [Sensory within normal limits]. Assessment: Status post right colectomy with epidural postop day 3 Plan: #1 spoke with nurse caring for the patient. Subcu heparin will be held until epidurals pulled this morning. Then they may resume subcu heparin
[2021-03-22] MEDS: LOSARTAN 50 MG TAB PO SCH (08:13)
[2021-03-22] MEDS: hydroCHLOROthiazide 12.5 MG CAP PO SCH (08:14)
[2021-03-22] MEDS: cloNIDine HCL 0.2 MG TAB PO SCH ×3 (08:15→21:31)
[2021-03-22] MEDS: METOPROLOL SUCCINATE (ER) 100 MG TAB.ER.24H PO SCH ×2 (08:16→20:21)
[2021-03-22] MEDS: amLODIPine 5 MG TAB PO SCH (08:19)
[2021-03-22 09:06] LABS: Basophils # (A) 0.05 X 10*3/uL (0.00-0.10); Basophils % (A) 0.7 %; Eosinophils # (A) 0.27 X 10*3/uL (0.04-0.35); HCT 31.3 % (37.2-46.3); HGB 10.2 g/dL (12.0-15.0); Lymphocytes # (A) 1.13 X 10*3/uL (0.90-5.00); Lymphocytes % (A) 16.9 %; MCHC 32.6 g/dL (32.0-37.0); MCV 95.1 fL (80.0-97.0); Mean Platelet Volume 10.7 fL (9.5-12.2); Monocytes # (A) 0.72 X 10*3/uL (0.20-1.00); Monocytes % (A) 10.7 %; Neutrophils % (A) 67.3 %; Platelet Count 207 X 10*3/uL (140-440); RBC 3.29 X 10*6/uL (4.10-5.20); RDW 14.3 % (11.5-14.5)
--- NOTE | 2021-03-22 12:25 | P.PN ---
<Jacqueline Esparza - Last Filed: 03/22/21 12:21> Subjective Progress Note Date: 03/22/21 CHIEF COMPLAINT: Cecal volvulus HISTORY OF PRESENT ILLNESS: Patient is status post exploratory laparotomy with right colectomy and extensive lysis of adhesions. Postop day #3. She has epidural for pain control. She reports that her pain is controlled. She denies any nausea or vomiting. She is having bowel movements and flatus. Afebrile. WBC 6.70 hemoglobin 10.2 PHYSICAL EXAM: VITAL SIGNS: Reviewed. GENERAL: Well-developed in no acute distress. HEENT: No sclera icterus. Extraocular movements grossly intact. Moist buccal mucosa. Head is atraumatic, normocephalic. ABDOMEN: Soft. Nondistended. Erythema noted along the lower left side of incision. Patient does have minimal oozing of blood throughout her incision. No evidence of purulent drainage. She does has bruising at the distal aspect of the incision. NEUROLOGIC: Alert and oriented. Cranial nerves II through XII grossly intact. ASSESSMENT: 1. Cecal volvulus and intra-abdominal adhesions status post exploratory laparotomy with right colectomy and extensive lysis of adhesions PLAN: -Epidural and Sifuentes catheter scheduled to be discontinued today -Continue antibiotics -Add Chandler to help with pain control -Encouraged patient to increase activity -Encouraged patient to use incentive spirometer -Continue full liquids -Consult PT OT -GI prophylaxis Protonix and DVT prophylaxis subcu heparin Physician Clinical Dietician note has been reviewed by physician. Signing provider agrees with the documented findings, assessment, and plan of care. Objective - Vital Signs Vital signs: Vital Signs Temp 99.1 F 03/22/21 06:41 Pulse 71 03/22/21 06:41 Resp 17 03/22/21 06:41 BP 142/77 03/22/21 06:41 Pulse Ox 94 L 03/22/21 06:41 Intake & Output 03/21/21 03/22/21 03/22/21 18:59 06:59 18:59 Intake Total 300 700 Output Total 650 175 Balance -350 525 Intake: Intake, IV Titration 300 700 Amount Ampicillin-Sulbactam 3 gm 200 100 In Sodium Chloride 0.9% 100 ml @ 200 mls/hr IVPB Q8H [facility] Rx#:[id number] Sodium Chloride 0.9% 1, 600 000 ml @ 50 mls/hr IV . Q20H [facility] Rx#:[id number] metroNIDAZOLE-NS PMX 500 100 mg In Saline 1 100ml.bag @ 100 mls/hr IVPB Q8HR [facility] Rx#:[id number] Output: Urine 650 175 Uretheral (Sifuentes) 650 Other: Voiding Method Indwelling Catheter Indwelling Catheter - Labs CBC & Chem 7: 03/22/21 05:25 03/21/21 06:55 Labs: Abnormal Lab Results - Last 24 Hours (Table) 03/22/21 Range/Units 05:25 RBC 3.29 L (4.10-5.20) X 10*6/uL Hgb 10.2 L (12.0-15.0) g/dL Hct 31.3 L (37.2-46.3) % <Kishore Ramesh - Last Filed: 03/22/21 17:45> Subjective As above. Patient doing well. Still having bowel function. Will increase diet. Continue increasing her activity. Objective - Vital Signs Vital signs: Vital Signs Temp 98.6 F 03/22/21 12:35 Pulse 66 03/22/21 12:35 Resp 17 03/22/21 12:35 BP 142/77 03/22/21 12:35 Pulse Ox 97 03/22/21 12:43 Intake & Output 03/21/21 03/22/21 03/22/21 18:59 06:59 18:59 Intake Total 300 700 Output Total 650 175 Balance -350 525 Intake: Intake, IV Titration 300 700 Amount Ampicillin-Sulbactam 3 gm 200 100 In Sodium Chloride 0.9% 100 ml @ 200 mls/hr IVPB Q8H [facility] Rx#:[id number] Sodium Chloride 0.9% 1, 600 000 ml @ 50 mls/hr IV . Q20H [facility] Rx#:[id number] metroNIDAZOLE-NS PMX 500 100 mg In Saline 1 100ml.bag @ 100 mls/hr IVPB Q8HR [facility] Rx#:[id number] Output: Urine 650 175 Uretheral (Sifuentes) 650 Other: Voiding Method Indwelling Catheter Indwelling Catheter # Voids 3 - Labs CBC & Chem 7: 03/22/21 05:25 03/22/21 05:25 Labs: Abnormal Lab Results - Last 24 Hours (Table) 03/22/21 03/22/21 Range/Units 05:25 05:25 RBC 3.29 L (4.10-5.20) X 10*6/uL Hgb 10.2 L (12.0-15.0) g/dL Hct 31.3 L (37.2-46.3) % Potassium 3.4 L (3.5-5.5) mmol/L Calcium 8.5 L (8.7-10.3) mg/dL Assessment and Plan (1) Cecal volvulus Current Visit: Yes Status: Acute Code(s): K56.2 - VOLVULUS SNOMED Code(s): 128008063
[2021-03-22 16:01] LABS: African American GFR (CKD) 82.4 (60.0-200.0); Anion Gap 11.4 mmol/L (4.00-12.00); BUN/Creat Ratio 15.63 Ratio (12.00-20.00); Blood Urea Nitrogen 12.5 mg/dL (9.0-27.0); Calcium 8.5 mg/dL (8.7-10.3); Carbon Dioxide 25.6 mmol/L (21.6-31.8); Non-African American GFR(CKD) 71.1 (60.0-200.0); Potassium 3.4 mmol/L (3.5-5.5)
[2021-03-22] MEDS: SODIUM CHLORIDE 0.9% 1,000 ML IV SCH (16:07)
[2021-03-22] MEDS: HYDROcodone/APAP 5-325MG 1 EACH TAB PO PRN (16:25)
--- NOTE | 2021-03-22 17:27 | PN ---
PROGRESS NOTE DATE OF SERVICE: 03/22/2021 This 75-year-old woman who was admitted with acute cecal volvulus had status post exploratory laparotomy, right colectomy and extensive lysis of adhesions. No chest pain. No palpitations. Patient has hypertension also. PHYSICAL EXAMINATION: Alert and oriented x3. Pulse is 66, blood pressure 142/76, respiration 17, temperature 98.2, pulse ox 98% on room air. HEENT: Conjunctivae normal. Oral mucosa moist. NECK: No jugular venous distention. No lymph node enlargement. CARDIOVASCULAR: S1, S2, muffled. No S3, no S4, RESPIRATORY: Diminished breath sounds at the bases. A few scattered rhonchi. ABDOMEN: Soft, status post surgery. NERVOUS SYSTEM: No focal deficits. LABS: WBC 6.2, hemoglobin 10.2, sodium 135. ASSESSMENT: 1. Acute cecal volvulus status post exploratory laparotomy, right colectomy and as well as extensive lysis of adhesions. 2. Hypertension. 3. Hypokalemia, improved. 4. Increased WBC, possibly reactive. 5. Mild hyponatremia. 6. Elevated lactic acid, improved. 7. Increased AST ALT. 8. History of GERD. 9. History of DJD. 10.History of hypertension. 11.History of sleep apnea history of CPAP. 12.History of appendectomy. 13.FULL CODE. RECOMMENDATIONS AND DISCUSSION: Continue current management and symptomatic treatment. Continue with antihypertensive medications. Incentive spirometry. DVT prophylaxis. Closely follow with surgery. Guarded prognosis. Further recommendations to follow. MMODL / PAULN: [id number] /
[2021-03-23] MEDS: AMPICILLIN-SULBACTAM 3 GM in SODIUM CHLORIDE 0.9% 100 ML IVPB SCH ×3 (03:11→21:15)
[2021-03-23] MEDS: SODIUM CHLORIDE 0.9% 1,000 ML IV SCH ×3 (03:12→21:17)
[2021-03-23] MEDS: HYDROcodone/APAP 5-325MG 1 EACH TAB PO PRN (08:46)
[2021-03-23] MEDS: LOSARTAN 50 MG TAB PO SCH (08:54)
[2021-03-23] MEDS: cloNIDine HCL 0.2 MG TAB PO SCH ×3 (08:54→21:16)
[2021-03-23] MEDS: amLODIPine 5 MG TAB PO SCH (08:54)
[2021-03-23] MEDS: HEPARIN SODIUM,PORCINE/PF 5,000 UNIT/0.5 ML SYRINGE SQ SCH ×3 (08:54→21:16)
[2021-03-23] MEDS: hydroCHLOROthiazide 12.5 MG CAP PO SCH (08:54)
[2021-03-23] MEDS: metroNIDAZOLE-NS PMX 500 MG in SALINE 1 100ML.BAG IVPB SCH (08:57)
[2021-03-23] MEDS: METOPROLOL SUCCINATE (ER) 100 MG TAB.ER.24H PO SCH ×2 (08:58→21:14)
[2021-03-23] MEDS: PANTOPRAZOLE 40 MG/10 ML VIAL IV SCH (09:02)
[2021-03-23] MEDS ORDERED: POTASSIUM CHLORIDE ER 20 MEQ TAB.ER PO STA (14:03)
--- NOTE | 2021-03-23 14:07 | P.PN ---
<Jacqueline Esparza - Last Filed: 03/23/21 14:00> Subjective Progress Note Date: 03/23/21 CHIEF COMPLAINT: Cecal volvulus HISTORY OF PRESENT ILLNESS: Patient is status post exploratory laparotomy with right colectomy and extensive lysis of adhesions. Postop day #4. Epidural and Sifuentes catheter were discontinued yesterday. Patient reports that her pain is controlled. She is up and ambulating. She denies any nausea or vomiting. She is having bowel movements. Afebrile. Potassium 3.4. Physical therapy recommended home with home care. PHYSICAL EXAM: VITAL SIGNS: Reviewed. GENERAL: Well-developed in no acute distress. HEENT: No sclera icterus. Extraocular movements grossly intact. Moist buccal mucosa. Head is atraumatic, normocephalic. ABDOMEN: Soft. Nondistended. Erythema noted along the incision and to the distal left of the incision. No evidence of purulent drainage. She does has bruising at the distal aspect of the incision. NEUROLOGIC: Alert and oriented. Cranial nerves II through XII grossly intact. ASSESSMENT: 1. Cecal volvulus and intra-abdominal adhesions status post exploratory lap arotomy with right colectomy and extensive lysis of adhesions PLAN: -Continue low fiber diet -Continue antibiotics -Continue pain medication as needed -Encouraged patient to increase activity -Encouraged patient to use incentive spirometer -Replace potassium -GI prophylaxis Protonix and DVT prophylaxis subcu heparin Physician Customer Sales Consultant note has been reviewed by physician. Signing provider agrees with the documented findings, assessment, and plan of care. Objective - Vital Signs Vital signs: Vital Signs Temp 98.6 F 03/23/21 08:00 Pulse 68 03/23/21 08:00 Resp 18 03/23/21 08:00 BP 158/82 03/23/21 08:00 Pulse Ox 95 03/23/21 09:40 Intake & Output 03/22/21 03/23/21 03/23/21 18:59 06:59 18:59 Intake Total 700 Balance 700 Intake: Intake, IV Titration 700 Amount Ampicillin-Sulbactam 3 gm 100 In Sodium Chloride 0.9% 100 ml @ 200 mls/hr IVPB Q8H [facility] Rx#:[id number] Sodium Chloride 0.9% 1, 600 000 ml @ 50 mls/hr IV . Q20H [facility] Rx#:[id number] Other: Voiding Method Toilet # Voids 3 3 # Bowel Movements 1 - Labs CBC & Chem 7: 03/22/21 05:25 03/22/21 05:25 Labs: Abnormal Lab Results - Last 24 Hours (Table) 03/22/21 Range/Units 05:25 Potassium 3.4 L (3.5-5.5) mmol/L Calcium 8.5 L (8.7-10.3) mg/dL <Kishore Ramesh - Last Filed: 03/23/21 16:41> Subjective As above. Patient is doing well today. Incision has mild erythema along the length of the staple line. It looks more like an ALLERGY reaction to the ro themselves as opposed to a infection of the incision. We'll add Benadryl. Continued diet as ordered. Possible discharge tomorrow. Objective - Vital Signs Vital signs: Vital Signs Temp 98.0 F 03/23/21 14:00 Pulse 67 03/23/21 14:00 Resp 18 03/23/21 14:00 BP 138/77 03/23/21 14:00 Pulse Ox 96 03/23/21 14:00 Intake & Output 03/22/21 03/23/21 03/23/21 18:59 06:59 18:59 Intake Total 700 Balance 700 Intake: Intake, IV Titration 700 Amount Ampicillin-Sulbactam 3 gm 100 In Sodium Chloride 0.9% 100 ml @ 200 mls/hr IVPB Q8H [facility] Rx#:[id number] Sodium Chloride 0.9% 1, 600 000 ml @ 50 mls/hr IV . Q20H [facility] Rx#:[id number] Other: Voiding Method Toilet # Voids 3 3 # Bowel Movements 1 - Labs CBC & Chem 7: 03/22/21 05:25 03/22/21 05:25 Assessment and Plan (1) Cecal volvulus Current Visit: Yes Status: Acute Code(s): K56.2 - VOLVULUS SNOMED Code(s): 267070959
[2021-03-23] MEDS: metroNIDAZOLE 500 MG TAB PO SCH ×2 (15:23→21:14)
[2021-03-23] MEDS ORDERED: Potassium Replacement Protocol 1 EACH MISC MISCELLANE PRN (17:01)
[2021-03-23] MEDS ORDERED: Magnesium Replacement Protocol 1 EACH MISC MISCELLANE PRN (17:01)
[2021-03-23] MEDS: diphenhydrAMINE 25 MG CAP PO SCH (17:08)
--- NOTE | 2021-03-23 18:31 | PN ---
PROGRESS NOTE DATE OF SERVICE: 03/23/2021. This 75-year-old woman who was admitted after surgery is improving significantly. No chest pain. No palpitations. No fever. The patient has difficult to control hypertension and multiple medical issues. PHYSICAL EXAMINATION: Alert and oriented x3. Pulse 67, blood pressure 138/77, respiration 18, temperature 98 degrees, pulse ox 96% on room air. HEENT: Conjunctivae normal. NECK: No jugular venous distention. CARDIOVASCULAR: S1, S2 muffled. RESPIRATION: Breath sounds diminished at the bases. A few scattered rhonchi. ABDOMEN: Soft. Status post surgery. LEGS: No edema. No swelling. NERVOUS SYSTEM: No focal deficit. LABS: WBC 10.2. Sodium 137, potassium 3.4. ASSESSMENT: 1. Acute cecal volvulus, status post exploratory laparotomy, right colectomy as well as extensive lysis of adhesions. 2. Hypertension. 3. Hypokalemia, improved. 4. Increased white count, possibly reactive. 5. Mild hyponatremia. 6. Elevated lactic acid, improved. 7. Increased AST, ALT. 8. History of gastroesophageal reflux disease. 9. History of degenerative joint disease. 10.History of hypertension. 11.Sleep apnea history, on CPAP. 12.History of appendectomy. 13.FULL CODE. RECOMMENDATIONS AND DISCUSSION: I recommend to continue current medications, continue with symptomatic treatment. Continue with the blood pressure medication. Monitor closely. DVT prophylaxis. Guarded prognosis because of multiple complex medical issues. Further recommendations to follow. MMODL / IJN: [id number] /
[2021-03-23] MEDS: ESCITALOPRAM 10 MG TAB PO SCH (21:15)
[2021-03-24] MEDS: AMPICILLIN-SULBACTAM 3 GM in SODIUM CHLORIDE 0.9% 100 ML IVPB SCH ×3 (03:23→21:44)
[2021-03-24 07:43] LABS: African American GFR (CKD) >90 (>60 ml/min/1.73 sqM); Anion Gap 5 mmol/L; Blood Urea Nitrogen 11 mg/dL (7-17); Calcium 8.6 mg/dL (8.4-10.2); Carbon Dioxide 27 mmol/L (22-30); Chloride 102 mmol/L (98-107); Glucose 91 mg/dL (74-99); Magnesium 1.7 mg/dL (1.6-2.3); Non-African American GFR(CKD) 83 (>60 ml/min/1.73 sqM); Potassium 3.4 mmol/L (3.5-5.1); Sodium 134 mmol/L (137-145)
[2021-03-24] MEDS: LOSARTAN 50 MG TAB PO SCH (08:06)
[2021-03-24] MEDS: hydroCHLOROthiazide 12.5 MG CAP PO SCH (08:06)
[2021-03-24] MEDS: HEPARIN SODIUM,PORCINE/PF 5,000 UNIT/0.5 ML SYRINGE SQ SCH ×3 (08:06→21:45)
[2021-03-24] MEDS: PANTOPRAZOLE 40 MG TABLET PO SCH (08:07)
[2021-03-24] MEDS: METOPROLOL SUCCINATE (ER) 100 MG TAB.ER.24H PO SCH ×2 (08:07→21:45)
[2021-03-24] MEDS: metroNIDAZOLE 500 MG TAB PO SCH ×3 (08:07→21:47)
[2021-03-24] MEDS: amLODIPine 5 MG TAB PO SCH (08:07)
[2021-03-24] MEDS: cloNIDine HCL 0.2 MG TAB PO SCH ×3 (08:07→21:47)
[2021-03-24] MEDS: diphenhydrAMINE 25 MG CAP PO SCH ×2 (08:07→21:47)
[2021-03-24] MEDS ORDERED: POTASSIUM CHLORIDE ER 20 MEQ TAB.ER PO STA (08:13)
[2021-03-24] MEDS ORDERED: MAGNESIUM SULFATE-D5W PMX 1 GM in DEXTROSE/WATER 1 100ML.BAG IVPB ONE (08:13)
[2021-03-24 08:58] VITALS: BMI 29.0
--- NOTE | 2021-03-24 14:29 | P.PN ---
Subjective Progress Note Date: 03/24/21 CHIEF COMPLAINT: Cecal volvulus HISTORY OF PRESENT ILLNESS: Patient is status post exploratory laparotomy with right colectomy and extensive lysis of adhesions. Postop day #5. Patient reports that her pain is controlled. She is up and ambulating. She is having bowel movements. She is tolerating diet. She is afebrile. WBC is 6.70 potassium 3.4 magnesium 1.7. Patient has increased redness along her incision slightly worse today. No drainage from the incision. Patient was started on Benadryl yesterday for possible ALLERGIC reaction at incision site. Patient seen and examined with Dr. mcnulty who is covering for Dr. Ramesh PHYSICAL EXAM: VITAL SIGNS: Reviewed. GENERAL: Well-developed in no acute distress. HEENT: No sclera icterus. Extraocular movements grossly intact. Moist buccal mucosa. Head is atraumatic, normocephalic. ABDOMEN: Soft. Nondistended. Erythema noted along the incision and to the distal left of the incision. Slightly more increase in erythema noted today. No evidence of purulent drainage. She does has bruising at the distal aspect of the incision. NEUROLOGIC: Alert and oriented. Cranial nerves II through XII grossly intact. ASSESSMENT: 1. Cecal volvulus and intra-abdominal adhesions status post exploratory laparotomy with right colectomy and extensive lysis of adhesions 2. Possible ALLERGIC reaction at incision site 3. Hypokalemia 4. Hypomagnesemia PLAN: -Increase Benadryl to 25 mg twice a day -Continue to observe incision sites -Continue low fiber diet -Continue antibiotics -Continue pain medication as needed -Encouraged patient to increase activity -Encouraged patient to use incentive spirometer -Replace potassium -Replace magnesium -GI prophylaxis Protonix and DVT prophylaxis subcu heparin Physician Manager Asset Management note has been reviewed by physician. Signing provider agrees with the documented findings, assessment, and plan of care. Objective - Vital Signs Vital signs: Vital Signs Temp 98.1 F 03/24/21 08:00 Pulse 63 03/24/21 08:00 Resp 16 03/24/21 08:00 BP 169/79 03/24/21 08:00 Pulse Ox 97 03/24/21 08:00 Intake & Output 03/23/21 03/24/21 03/24/21 18:59 06:59 18:59 Intake Total 240 Balance 240 Weight 72.121 kg Intake: Oral 240 Other: Voiding Method Toilet Toilet # Voids 1 - Labs CBC & Chem 7: 03/22/21 05:25 03/24/21 06:32 Labs: Abnormal Lab Results - Last 24 Hours (Table) 03/24/21 Range/Units 06:32 Sodium 134 L (137-145) mmol/L Potassium 3.4 L (3.5-5.1) mmol/L
--- NOTE | 2021-03-24 15:56 | PN ---
PROGRESS NOTE DATE OF SERVICE: 03/24/2021 This 75-year-old woman who was admitted after surgery is improving significantly. No chest pain. No palpitations. No fever. The patient has a significant history of hypertension. PHYSICAL EXAMINATION: Alert and oriented x3. Pulse is 66, blood pressure 143/82, respiration 15, temperature 97.9, pulse ox 98% on room air. HEENT: Conjunctivae normal. NECK: No jugular venous distention. CARDIOVASCULAR: S1, S2 muffled. RESPIRATION: Breath sounds diminished at the bases. A few scattered rhonchi. ABDOMEN: Soft. Status post surgery. LEGS: No edema. No swelling. NERVOUS SYSTEM: No focal deficit. LABS: Sodium ntd potassium 3.4. ASSESSMENT: 1. Acute cecal volvulus, status post exploratory laparotomy, right colectomy as well as extensive lysis of adhesions. 2. Hypertension. 3. Hypokalemia, improved. 4. Increased white count, possibly reactive. 5. Mild hyponatremia. 6. Elevated lactic acid, improved. 7. Increased AST, ALT. 8. History of gastroesophageal reflux disease. 9. History of degenerative joint disease. 10.History of hypertension. 11.Obstructive sleep apnea, on CPAP. 12.History of appendectomy. 13.FULL CODE. RECOMMENDATIONS AND DISCUSSION: I recommend to continue current medications, continue with symptomatic treatment. Otherwise at this time the patient can be started on the home dose of antihypertensive medications and closely follow with primary physician in the outpatient setting. Rest of the recommendations per Surgery. Further recommendations to follow. MMNERI / PAULN: [id number] / MTDRyan
[2021-03-24] MEDS: HYDROcodone/APAP 5-325MG 1 EACH TAB PO PRN (17:13)
[2021-03-25] MEDS: AMPICILLIN-SULBACTAM 3 GM in SODIUM CHLORIDE 0.9% 100 ML IVPB SCH ×2 (06:09→11:49)
[2021-03-25] MEDS: LOSARTAN 50 MG TAB PO SCH (08:14)
[2021-03-25] MEDS: hydroCHLOROthiazide 12.5 MG CAP PO SCH (08:14)
[2021-03-25] MEDS: cloNIDine HCL 0.2 MG TAB PO SCH ×3 (08:15→21:40)
[2021-03-25] MEDS: amLODIPine 5 MG TAB PO SCH (08:15)
[2021-03-25] MEDS: diphenhydrAMINE 25 MG CAP PO SCH ×2 (08:15→21:40)
[2021-03-25] MEDS: HEPARIN SODIUM,PORCINE/PF 5,000 UNIT/0.5 ML SYRINGE SQ SCH ×3 (08:15→21:39)
[2021-03-25] MEDS: METOPROLOL SUCCINATE (ER) 100 MG TAB.ER.24H PO SCH ×2 (08:15→21:40)
[2021-03-25] MEDS: PANTOPRAZOLE 40 MG TABLET PO SCH (08:15)
[2021-03-25] MEDS: metroNIDAZOLE 500 MG TAB PO SCH ×3 (08:15→21:40)
[2021-03-25] MEDS: HYDROcodone/APAP 5-325MG 1 EACH TAB PO PRN (08:16)
[2021-03-25 13:08] LABS: Basophils # (A) 0.05 X 10*3/uL (0.00-0.10); Basophils % (A) 0.7 %; HCT 33.2 % (37.2-46.3); HGB 10.7 g/dL (12.0-15.0); Lymphocytes # (A) 1.42 X 10*3/uL (0.90-5.00); Lymphocytes % (A) 19.1 %; MCH 30.7 pg (27.0-32.0); MCHC 32.2 g/dL (32.0-37.0); MCV 95.1 fL (80.0-97.0); Monocytes # (A) 0.87 X 10*3/uL (0.20-1.00); Monocytes % (A) 11.7 %; Neutrophils # (A) 4.74 X 10*3/uL (1.80-7.70); Neutrophils % (A) 63.6 %; Platelet Count 259 X 10*3/uL (140-440); RBC 3.49 X 10*6/uL (4.10-5.20); RDW 14.3 % (11.5-14.5); WBC 7.45 X 10*3/uL (4.50-10.00)
[2021-03-25 13:10] LABS: African American GFR (CKD) 96.9 (60.0-200.0); Anion Gap 14.1 mmol/L (4.00-12.00); BUN/Creat Ratio 14.57 Ratio (12.00-20.00); Blood Urea Nitrogen 10.2 mg/dL (9.0-27.0); Calcium 8.6 mg/dL (8.7-10.3); Carbon Dioxide 20.9 mmol/L (21.6-31.8); Magnesium 1.7 mg/dL (1.5-2.4); Non-African American GFR(CKD) 83.6 (60.0-200.0); Potassium 3.5 mmol/L (3.5-5.5)
--- NOTE | 2021-03-25 15:00 | P.PN ---
Subjective Progress Note Date: 03/25/21 CHIEF COMPLAINT: Cecal volvulus HISTORY OF PRESENT ILLNESS: The patient is a 75-year-old female status post colectomy for cecal volvulus. She is on low fiber diet. 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 Since benadryl, redness is getting better. She is having bowel movements. ROS: No reports of nausea and vomiting. No fevers or chills. No new chest pain. No productive sputum PHYSICAL EXAM: VITAL SIGNS: Reviewed CONSTITUTIONAL: Well developed and in no acute distress. EYES: Conjuctivae without sclera icterus. Extraocular movements grossly intact. HEAD, EARS, NOSE, THROAT: Moist buccal mucosa. Head is atraumatic, normocephalic. Hears conversational speech. No nasal drainage. NECK: No gross thyroidomegaly. No jugular venous distention. RESPIRATORY: Non-labored respirations and equal bilateral excursions. CARDIOVASCULAR: Palpable 2+ radial pulses. ABDOMEN: Incisions clean dry and intact. No peritonitis. Mild erythema along the midline is getting better. MUSCULOSKELETAL: No gross deformity of the lower extremities noted. No clubbing. No cyanosis. SKIN: Good skin turgor. Well perfused. NEUROLOGIC: Cranial nerves II through XII grossly intact. No focal or lateralizing signs. PSYCH: Appropriate affect. Alert and oriented to person, place and time. CLINICAL LABS: Reviewed. White blood cell count normal at 7.4. Hemoglobin increased from 10.2-10.7. ASSESSMENT: 1. Cecal volvulus status post colectomy 2. 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 Continue low fiber diet. 2. Encourage ambulation. 3. Recommend adjust medications for allergic reaction. Objective - Vital Signs Vital signs: Vital Signs Temp 97.9 F 03/25/21 07:42 Pulse 65 03/25/21 01:59 Resp 22 03/25/21 07:42 BP 168/90 03/25/21 07:42 Pulse Ox 96 03/25/21 07:42 Intake & Output 03/24/21 03/25/21 03/25/21 18:59 06:59 18:59 Intake Total 480 Output Total 175 Balance 305 Weight 72.121 kg Intake: Oral 480 Output: Urine 175 Other: Voiding Method Toilet Toilet Toilet # Voids 3 1 1 # Bowel Movements 1 1 1 - Labs CBC & Chem 7: 03/25/21 07:17 03/25/21 07:17 Labs: Abnormal Lab Results - Last 24 Hours (Table) 03/25/21 03/25/21 Range/Units 07:17 07:17 RBC 3.49 L (4.10-5.20) X 10*6/uL Hgb 10.7 L (12.0-15.0) g/dL Hct 33.2 L (37.2-46.3) % Immature Gran # 0.07 H (0.00-0.04) X 10*3/uL Carbon Dioxide 20.9 L (21.6-31.8) mmol/L Anion Gap 14.10 H (4.00-12.00) mmol/L Calcium 8.6 L (8.7-10.3) mg/dL Assessment and Plan (1) Peritoneal adhesions (postprocedural) (postinfection) Current Visit: Yes Status: Acute Code(s): K66.0 - PERITONEAL ADHESIONS (POSTPROCEDURAL) (POSTINFECTION) SNOMED Code(s): 43981011 (2) Abdominal pain Current Visit: Yes Status: Acute Code(s): R10.9 - UNSPECIFIED ABDOMINAL PAIN SNOMED Code(s): 82850522 (3) Cecal volvulus Current Visit: Yes Status: Acute Code(s): K56.2 - VOLVULUS SNOMED Code(s): 969306350 (4) Allergy Current Visit: Yes Status: Acute Code(s): T78.40XA - ALLERGY, UNSPECIFIED, INITIAL ENCOUNTER SNOMED Code(s): 514002122
[2021-03-25] MEDS: SODIUM CHLORIDE 0.9% 1,000 ML IV SCH (16:10)
[2021-03-25] MEDS: LORATADINE-PSEUDOEPH 5-120 MG 1 EACH TAB.ER.12H PO SCH ×2 (16:23→21:41)
[2021-03-25] MEDS: ESCITALOPRAM 10 MG TAB PO SCH (18:14)
--- NOTE | 2021-03-25 22:47 | PN ---
PROGRESS NOTE DATE OF SERVICE: 03/25/2021 This 75-year-old woman who was admitted after surgery for cecal volvulus is improving significantly. The patient had a history of hypertension. No chest pain. No palpitations. No fever. PHYSICAL EXAMINATION: Alert and oriented x3. Pulse 64, blood pressure 125/76, respiration 18, temperature 97.4, pulse ox 97% on room air. HEENT: Conjunctivae normal. NECK: No jugular venous distention. CARDIOVASCULAR: S1, S2 muffled. RESPIRATION: Breath sounds diminished at the bases. A few scattered rhonchi. ABDOMEN: Soft, nontender. No mass palpable. Status post surgery. LEGS: No edema. No swelling. NERVOUS SYSTEM: No focal deficit. LABS: Hemoglobin 10.7, sodium 136, potassium 3.5. ASSESSMENT: 1. Acute cecal volvulus, status post exploratory laparotomy and right colectomy as well as extensive lysis of adhesion. 2. Hypertension. 3. Hypokalemia, improved. 4. Increased white count, possibly reactive. 5. Mild hyponatremia. 6. Elevated lactic acid, improved. 7. Increased AST and ALT. 8. History of gastroesophageal reflux disease. 9. History of degenerative joint disease. 10.History of hypertension. 11.Obstructive sleep apnea, on CPAP. 12.History of appendectomy. 13.FULL CODE. RECOMMENDATIONS AND DISCUSSION: I recommend to continue current medications, continue with symptomatic treatment. Continue to monitor and closely follow with Surgery. Further recommendations to follow. MMODL / IJN: [id number] /
[2021-03-26] MEDS: METOPROLOL SUCCINATE (ER) 100 MG TAB.ER.24H PO SCH (08:06)
[2021-03-26] MEDS: LOSARTAN 50 MG TAB PO SCH (08:06)
[2021-03-26] MEDS: LORATADINE-PSEUDOEPH 5-120 MG 1 EACH TAB.ER.12H PO SCH (08:06)
[2021-03-26] MEDS: hydroCHLOROthiazide 12.5 MG CAP PO SCH (08:06)
[2021-03-26] MEDS: diphenhydrAMINE 25 MG CAP PO SCH (08:07)
[2021-03-26] MEDS: cloNIDine HCL 0.2 MG TAB PO SCH (08:07)
[2021-03-26] MEDS: PANTOPRAZOLE 40 MG TABLET PO SCH (08:07)
[2021-03-26] MEDS: amLODIPine 5 MG TAB PO SCH (08:07)
[2021-03-26] MEDS: HEPARIN SODIUM,PORCINE/PF 5,000 UNIT/0.5 ML SYRINGE SQ SCH (08:07)
[2021-03-26] MEDS: metroNIDAZOLE 500 MG TAB PO SCH (08:07)
[2021-03-26] MEDS: SODIUM CHLORIDE 0.9% 1,000 ML IV SCH (08:09)
[2021-03-26 09:12] VITALS: BP 148/72; PULSE 63; RESP 18; TEMP 97.9
--- NOTE | 2021-03-26 11:03 | P.DS ---
Providers Date of admission: 03/19/21 02:28 Expected date of discharge: 03/26/21 Attending physician: Kishore Ramesh Consults: 03/19/21 16:13 Consult Physician Routine Consulting Provider: Panda Palmer Consult Reason/Comments: Medical management Do you want consulting provider notified?: Yes Primary care physician: Ray Gomes - Discharge Diagnosis(es) (1) Peritoneal adhesions (postprocedural) (postinfection) Current Visit: Yes Status: Acute (2) Abdominal pain Current Visit: Yes Status: Acute (3) Cecal volvulus Current Visit: Yes Status: Acute (4) Allergy Current Visit: Yes Status: Acute Hospital Course: CHIEF COMPLAINT: Cecal volvulus HISTORY OF PRESENT ILLNESS: The patient is a 75-year-old female admitted for cecal volvulus. She is status post colectomy. She is tolerating low fiber diet. Her allergic reaction is almost entirely gone with Claritin D addition. Her pain is well controlled without narcotics. She is having bowel movements. ROS: No reports of nausea and vomiting. No fevers or chills. No new chest pain. No productive sputum PHYSICAL EXAM: VITAL SIGNS: Reviewed CONSTITUTIONAL: Well developed and in no acute distress. EYES: Conjuctivae without sclera icterus. Extraocular movements grossly intact. HEAD, EARS, NOSE, THROAT: Moist buccal mucosa. Head is atraumatic, normocephalic. Hears conversational speech. No nasal drainage. NECK: No gross thyroidomegaly. No jugular venous distention. RESPIRATORY: Non-labored respirations and equal bilateral excursions. CARDIOVASCULAR: Palpable 2+ radial pulses. ABDOMEN: Incisions clean dry and intact. No peritonitis. Erythema resolved of the upper incisions and moderate resolution of lower incision. MUSCULOSKELETAL: No gross deformity of the lower extremities noted. No clubbing. No cyanosis. SKIN: Good skin turgor. Well perfused. NEUROLOGIC: Cranial nerves II through XII grossly intact. No focal or lateralizing signs. PSYCH: Appropriate affect. Alert and oriented to person, place and time. CLINICAL LABS: Reviewed. White blood cell count normal at 7.4. Hemoglobin increased from 10.2-10.7. No new labs. ASSESSMENT: 1. Cecal volvulus status post colectomy 2. 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 She did well with Claritin. Continue with Claritin and benadryl on discha rge. 2. She is stable for discharge. 3. Discharge instructions reviewed. Patient Condition at Discharge: Good Plan - Discharge Summary Discharge Rx Participant: Yes New Discharge Prescriptions: New Loratadine-Pseudoeph 5-120 mg [Claritin-D 12 HR] 1 each PO Q12HR #30 tab Acetaminophen Tab [Tylenol Tab] 1,000 mg PO Q6HR PRN #30 tablet PRN Reason: Pain diphenhydrAMINE HCL [Benadryl] 25 mg PO BID PRN #30 tab PRN Reason: Allergic Reaction Continue Lansoprazole 30 mg PO DAILY Escitalopram [Lexapro] 10 mg PO Q48H cloNIDine HCL [Catapres] 0.2 mg PO TID Aspirin 81 mg PO Q48H Metoprolol Succinate [Toprol XL] 200 mg PO BID Meloxicam [Mobic] 7.5 mg PO BID Telmisartan/Hydrochlorothiazid [Micardis Hct 80-12.5 mg Tablet] 1 tab PO DAILY amLODIPine BESYLATE [Norvasc] 5 mg PO DAILY [place]-3 Fatty Acids/Fish Oil [Fish Oil 1,000 mg Softgel] 1 cap PO DAILY Glucosam/Mayito-Msm1/C/Sebastian/Bosw [Glucosamine-Chondroitin Tablet] 1 tab PO DAILY Meclizine HCl 25 mg PO DAILY PRN PRN Reason: Vertigo Calcium Carbonate/Vitamin D3 [Calcium 500 mg-Vit D3 5 mcg (200 Unit)] 1 tab PO DAILY Discontinued Fexofenadine HCl [Alyssa Allergy] 180 mg PO HS Vitamin E 400 unit PO DAILY Discharge Medication List Aspirin 81 mg PO Q48H 02/03/14 [History] Escitalopram [Lexapro] 10 mg PO Q48H 02/03/14 [History] Lansoprazole 30 mg PO DAILY 02/03/14 [History] Meloxicam [Mobic] 7.5 mg PO BID 02/03/14 [History] Metoprolol Succinate [Toprol XL] 200 mg PO BID 02/03/14 [History] Telmisartan/Hydrochlorothiazid [Micardis Hct 80-12.5 mg Tablet] 1 tab PO DAILY 02/03/14 [History] cloNIDine HCL [Catapres] 0.2 mg PO TID 02/03/14 [History] Glucosam/Mayito-Msm1/C/Sebastian/Bosw [Glucosamine-Chondroitin Tablet] 1 tab PO DAILY 10/21/14 [History] [place]-3 Fatty Acids/Fish Oil [Fish Oil 1,000 mg Softgel] 1 cap PO DAILY 10/21/14 [History] amLODIPine BESYLATE [Norvasc] 5 mg PO DAILY 10/21/14 [History] Calcium Carbonate/Vitamin D3 [Calcium 500 mg-Vit D3 5 mcg (200 Unit)] 1 tab PO DAILY 03/19/21 [History] Meclizine HCl 25 mg PO DAILY PRN 03/19/21 [History] Acetaminophen Tab [Tylenol Tab] 1,000 mg PO Q6HR PRN #30 tablet 03/26/21 [Rx] Loratadine-Pseudoeph 5-120 mg [Claritin-D 12 HR] 1 each PO Q12HR #30 tab [Rx] diphenhydrAMINE HCL [Benadryl] 25 mg PO BID PRN #30 tab 03/26/21 [Rx] Follow up Appointment(s)/Referral(s): Kishore Ramesh MD [Medical Doctor] - 2 Weeks Ray Gomes DO [Primary Care Provider] - 1-2 days Patient Instructions/Handouts: Colectomy (IP), Colectomy Diet (DC) Activity/Diet/Wound Care/Special Instructions: May shower. Continue new allergy medications. No lifting over 10 pounds for 4 weeks from surgery. Discharge Disposition: HOME SELF-CARE
== END 2021-03-26 12:09 | disposition home or self-care (01) | DRG 330 ==
LOC: EC 22:48 → 5NMEDONC 03-19 02:28 → 4SSUR 03-19 10:54
PROVIDERS: ADMIT Surgery; ATTEND Surgery
PROC: 0DTF0ZZ Resection of Right Large Intestine, Open Approach (ICD-10-PCS; principal; 2021-03-19 13:00)
PROC: 0DNW0ZZ Release Peritoneum, Open Approach (ICD-10-PCS; principal; 2021-03-19 13:00)
DX: K56.2 Volvulus (principal); E87.1 Hypo-osmolality and hyponatremia; E87.2 Acidosis; K66.0 Peritoneal adhesions (postprocedural) (postinfection); E87.6 Hypokalemia; G47.33 Obstructive sleep apnea (adult) (pediatric); Z99.89 Dependence on other enabling machines and devices; R74.01 Elevation of levels of liver transaminase levels; E83.42 Hypomagnesemia; K21.9 Gastro-esophageal reflux disease without esophagitis; I10 Essential (primary) hypertension; Z79.1 Long term (current) use of non-steroidal anti-inflammatories (NSAID); Z79.82 Long term (current) use of aspirin; R11.15 Cyclical vomiting syndrome unrelated to migraine; Z79.899 Other long term (current) drug therapy; D72.829 Elevated white blood cell count, unspecified; Z97.4 Presence of external hearing-aid; Z20.822 Contact with and (suspected) exposure to COVID-19; Z90.49 Acquired absence of other specified parts of digestive tract; Z98.890 Other specified postprocedural states; M19.90 Unspecified osteoarthritis, unspecified site; Z88.1 Allergy status to other antibiotic agents; Z88.2 Allergy status to sulfonamides; Z88.8 Allergy status to other drugs, medicaments and biological substances
CPT/HCPCS: 36415; 71046; 71275; 74018; 74177; 76705; 80048; 80053; 83605; 83690; 83735; 83880; 84484; 85025; 85379; 85610; 85730; 87635; 88307; 93005; 94760; 96361; 96374; 96375; 99285

== ENCOUNTER → 2021-12-06 | Outpatient (CLI) | payer MEDICARE ==
--- NOTE | 2021-12-10 21:59 | MM ---
Reason for Exam: Screening (asymptomatic). Last mammogram was performed 1 year(s) and 1 month(s) ago. Patient History: Menarche at age 10. First Full-Term at age 17. Postmenopausal. Estrogen for 6 years, 7 months. Progesterone for 6 years, 7 months. Risk Values: Kristi 5 year model risk: 1.2%. NCI Lifetime model risk: 2.2%. Prior Study Comparison: 01/16/2018 Bilateral Screening Mammogram, [facility]. 02/23/2019 Bilateral Screening Mammogram, [facility]. 10/17/2020 Bilateral Screening Mammogram, [facility]. Tissue Density: There are scattered fibroglandular densities. Findings: Analyzed By CAD. There is no suspicious group of microcalcifications or new suspicious mass in either breast. Overall Assessment: Negative, BI-RAD 1 Management: Screening Mammogram of both breasts in 1 year. 1. The patient to continue monthly breast exams. 2. A clinical breast exam by your physician is recommended on an annual basis. 3. This exam should not preclude additional follow-up of suspicious palpable abnormalities. Electronically signed and approved by: Jennyfer Barksdale M.D. Radiologist
== END | disposition home or self-care (01) ==
LOC: RADMAMWWP 15:45
PROVIDERS: ATTEND Family Medicine
DX: Z12.31 Encounter for screening mammogram for malignant neoplasm of breast (principal); Z78.0 Asymptomatic menopausal state
CPT/HCPCS: 77063; 77067

== ENCOUNTER → 2022-12-26 | Outpatient (CLI) | payer MEDICARE ==
--- NOTE | 2022-12-27 08:49 | MM ---
Reason for Exam: Screening (asymptomatic). Last mammogram was performed 1 year(s) and 1 month(s) ago. Patient History: Menarche at age 10. First Full-Term at age 17. Postmenopausal. Estrogen for 6 years, 7 months. Progesterone for 6 years, 7 months. Risk Values: Kristi 5 year model risk: 1.2%. NCI Lifetime model risk: 2.0%. Prior Study Comparison: 02/23/2019 Bilateral Screening Mammogram, [facility]. 10/17/2020 Bilateral Screening Mammogram, [facility]. 12/06/2021 Bilateral MG 3D screening mammo w/cad, [facility]. Tissue Density: There are scattered fibroglandular densities. Findings: Analyzed By CAD. There is no suspicious group of microcalcifications or new suspicious mass in either breast. Overall Assessment: Negative, BI-RAD 1 Management: Screening Mammogram of both breasts in 1 year. A clinical breast exam by your physician is recommended on an annual basis and results should be correlated with mammographic findings. Note on Kristi scores and lifetime risk: 1. A Kristi score greater than 3% is considered moderate risk. If this is the case, consider specialist referral to assess eligibility for a risk reducing agent. If overall lifetime risk for the development of breast cancer is 20% or higher, the patient may qualify for future screening with alternating mammogram and breast MRI. Electronically signed and approved by: Hemant Cardona D.O.
== END | disposition home or self-care (01) ==
LOC: RADMAMWWP 14:35
PROVIDERS: ATTEND Family Medicine
DX: Z12.31 Encounter for screening mammogram for malignant neoplasm of breast (principal); Z78.0 Asymptomatic menopausal state
CPT/HCPCS: 77063; 77067